=== PATIENT | female | born 1960 | race Caucasian/White ===

== ENCOUNTER 2019-07-27 08:52 | Outpatient (CLI) | payer BC, SELFPAY ==
--- NOTE | ~2019-07-27 | DEXA_ITS ---
Bone Density Report Name: Bonita Espinoza Age: 58 Sex: Female Ethnicity: White Date of : 1960 Indication: postmenopausal; cancer; Referring Provider: LASHAUN DUQUE Study: Bone densitometry was performed. Exam Date: July 27, 2019 Accession number: [id number] Bone Density: Region BMD T-score Z-score Classification AP Spine (L1-L4) 0.867 -1.6 -0.5 Osteopenia Femoral Neck (Left) 0.756 -0.8 0.3 Normal Total Hip (Left) 1.007 0.5 1.3 Normal Total Hip Bilateral Avg 0.973 0.3 1.0 Normal Femoral Neck (Right) 0.615 -2.1 -1.0 Osteopenia Total Hip (Right) 0.938 0.0 0.7 Normal World Health Organization criteria for BMD impression classify patients as: Normal (T-score at or above -1.0), Osteopenia (T-score between -1.0 and -2.5), or Osteoporosis (T-score at or below -2.5). 10-year Fracture Risk(1): Major Osteoporotic Fracture 8.3% Hip Fracture 1.0% Reported Risk Factors: [place] (), Neck BMD=0.615, BMI=28.3 (1) FRAX(R) Version 3.08. Fracture probability calculated for an untreated patient. Fracture probability may be lower if the patient has received treatment. Previous Exams: Region Exam Age BMD T-score BMD Change BMD Change Date g/cm2 vs Baseline vs Previous AP Spine(L1-L4) 07/27/2019 58 0.867 -1.6 -0.071(-7.6%)* -0.071(-7.6%)* 05/02/2017 56 0.939 -1.0 Total Hip(Left) 07/27/2019 58 1.007 0.5 -0.009(-0.9%) -0.009(-0.9%) 05/02/2017 56 1.016 0.6 Total Hip(Right) 07/27/2019 58 0.938 0.0 -0.008(-0.8%) -0.008(-0.8%) 05/02/2017 56 0.946 0.0 *Denotes significance at 95% confidence level, LSC for AP Spine = 0.022 g/cm2, LSC for Total Hip = 0.027 g/cm2 Clinical Information Provided by Patient: Has used the following medications: Vitamin D, Calcium Has the following medical conditions: Cancer Patient maximum height was 63 Menopause Age: 54 Onset of menses at age 17 Number of children 1 Impression: The patient has low bone mass, based on the Right Femoral Neck T-score. The patient has an estimated ten-year risk of hip fracture of 1% and an estimated ten-year risk of major fracture of 8.3%, based on the WHO FRAX algorithm. The BMD for the AP Spine(L1-L4) decreased, changing by -7.6% since the last DXA exam. Discussion: BONE DENSITY IS LOW AT ONE OR MORE SKELETAL SITES. This patient's lowest T-score is low at one or more skeletal sites. It meets the World Health Organization's (WHO) criteria for ?low
== END 2019-07-27 08:53 | disposition home or self-care (01) ==
PROVIDERS: PCP Family Medicine; Visit Provider Obstetrics & Gynecology Gynecology
DX: Z78.0 Asymptomatic menopausal state (principal); M85.851 Other specified disorders of bone density and structure, right thigh; M85.88 Other specified disorders of bone density and structure, other site
CPT/HCPCS: 77080

== ENCOUNTER 2019-11-08 08:41 | Outpatient (CLI) | payer BC, SELFPAY ==
--- NOTE | ~2019-11-08 | MM_ITS ---
EXAMINATION: MM screening [facility] w michael HISTORY: Screening mammogram TECHNIQUE: Craniocaudal and mediolateral oblique 3-D tomosynthesis images were obtained and synthetic 2-D images were generated. CAD analysis was submitted and interpreted. COMPARISON: Comparison to multiple prior studies sequentially, with oldest reviewed study dated 12/20. BREAST PARENCHYMAL COMPOSITION: There are scattered areas of fibroglandular density. FINDINGS: Stable architectural distortion in the right breast, consistent with previous lumpectomy. T here is no evidence of suspicious mass, calcification, or architectural distortion to suggest maligna ncy in either breast. There has been no suspicious interval change. IMPRESSION: 1. No mammographic evidence of malignancy. 2. Recommend routine screening mammography in one year. BI-RADS Category 2: Benign finding(s). Reviewed, dictated and finalized at location A.
== END 2019-11-08 08:42 | disposition home or self-care (01) ==
LOC: ANHIMG 08:44
PROVIDERS: PCP Family Medicine; Visit Provider Internal Medicine Hematology & Oncology
DX: Z12.31 Encounter for screening mammogram for malignant neoplasm of breast (principal)
CPT/HCPCS: 77063; 77067

== ENCOUNTER 2019-11-08 09:06 | Outpatient (CLI) | payer BC, SELFPAY ==
[2019-11-08 09:26] LABS: Basophils Percent Auto 0.5 % (0.2-1.2); Eosinophils Absolute Auto 0.2 K/mm3 (0-0.3); Eosinophils Percent Auto 2.7 % (0-4.4); Hematocrit 43.7 % (37.0-47.0); Hemoglobin 14.8 g/dL (12.0-15.0); Immature Granulocyte Absolute 0.01 K/mm3 (0.00-0.031); Immature Granulocyte Percent A 0.2 % (0-0.5); Lymphocytes Absolute Auto 2.38 K/mm3 (0.9-3.2); Mean Corpuscular HGB Conc 33.9 g/dl (32-36); Mean Corpuscular Hemoglobin 30.6 pg (26-34); Mean Corpuscular Volume 90.5 fl (80-100); Mean Platelet Volume 9.7 fl (7.4-10.4); Monocytes Absolute Auto 0.5 K/mm3 (0.1-0.6); Monocytes Percent Auto 8.2 % (2.6-8.5); Neutrophils Absolute Auto 2.9 K/mm3 (1.3-6.7); Neutrophils Percent Auto 48.4 % (45.5-73.1); Platelet Count Result 208 k/mm3 (150-375); Red Blood Count 4.83 M/mm3 (4.2-5.4); Red Cell Distribution Width 13.2 % (11.5-14.5)
[2019-11-08 12:53] LABS: Alanine Aminotransferase 26 U/L (4-35); Albumin Level 4.3 g/dL (3.5-5.1); Alkaline Phosphatase 94 U/L (38-126); Aspartate Amino Transferase 34 U/L (14-36); Bilirubin,Total 0.4 mg/dL (0.2-1.3); Blood Urea Nitrogen 16 mg/dL (7-17); Calcium 9.2 mg/dL (8.4-10.2); Carbon Dioxide 27 mmol/L (22-30); Chloride 105 mmol/L (98-107); Estimated Glomerular Filt Rate > 60; Glucose 86 mg/dL (65-105); Potassium 4.1 mmol/L (3.4-5.0); Sodium 139 mmol/L (137-145)
[2019-11-10 20:53] LABS: CA 27.29 28 U/mL (<38)
== END 2019-11-08 09:07 | disposition home or self-care (01) ==
LOC: ANHLAB 09:11
PROVIDERS: PCP Family Medicine; Visit Provider Internal Medicine Hematology & Oncology
DX: C50.411 Malignant neoplasm of upper-outer quadrant of right female breast (principal); Z17.0 Estrogen receptor positive status [ER+]
CPT/HCPCS: 36415; 80053; 85025; 86300

== ENCOUNTER 2020-05-29 12:27 | Outpatient (CLI) | payer BC, SELFPAY ==
[2020-05-29 12:47] LABS: Basophils Percent Auto 0.6 % (0.2-1.2); Eosinophils Absolute Auto 0.2 K/mm3 (0-0.3); Eosinophils Percent Auto 2.1 % (0-4.4); Hematocrit 46.4 % (37.0-47.0); Immature Granulocyte Absolute 0.01 K/mm3 (0.00-0.031); Immature Granulocyte Percent A 0.1 % (0-0.5); Lymphocytes Absolute Auto 2.53 K/mm3 (0.9-3.2); Lymphocytes Percent Auto 36.1 % (18.3-44.2); Mean Corpuscular HGB Conc 34.5 g/dl (32-36); Mean Corpuscular Hemoglobin 31.5 pg (26-34); Mean Corpuscular Volume 91.3 fl (80-100); Mean Platelet Volume 9.7 fl (7.4-10.4); Monocytes Absolute Auto 0.5 K/mm3 (0.1-0.6); Monocytes Percent Auto 7.4 % (2.6-8.5); Neutrophils Absolute Auto 3.8 K/mm3 (1.3-6.7); Neutrophils Percent Auto 53.7 % (45.5-73.1); Platelet Count Result 235 k/mm3 (150-375); Red Blood Count 5.08 M/mm3 (4.2-5.4); Red Cell Distribution Width 12.7 % (11.5-14.5)
[2020-05-29 13:00] LABS: Alanine Aminotransferase 34 U/L (4-35); Albumin Level 4.3 g/dL (3.5-5.1); Alkaline Phosphatase 79 U/L (38-126); Anion Gap 6 mmol/L (8-16); Aspartate Amino Transferase 42 U/L (14-36); Bilirubin,Total 0.4 mg/dL (0.2-1.3); Blood Urea Nitrogen 16 mg/dL (7-17); Calcium 9.6 mg/dL (8.4-10.2); Carbon Dioxide 32 mmol/L (22-30); Chloride 102 mmol/L (98-107); Estimated Glomerular Filt Rate > 60; Glucose 84 mg/dL (65-105); Potassium 4.3 mmol/L (3.4-5.0); Sodium 140 mmol/L (137-145)
[2020-06-03 06:02] LABS: CA 27.29 22 U/mL (<38)
== END 2020-05-29 12:28 | disposition home or self-care (01) ==
LOC: ANHLAB 12:29
PROVIDERS: PCP Family Medicine; Visit Provider Internal Medicine Hematology & Oncology
DX: C50.411 Malignant neoplasm of upper-outer quadrant of right female breast (principal); Z17.0 Estrogen receptor positive status [ER+]
CPT/HCPCS: 36415; 80053; 85025; 86300

== ENCOUNTER 2020-11-09 08:27 | Outpatient (CLI) | payer BC, SELFPAY ==
--- NOTE | ~2020-11-09 | MM_ITS ---
EXAMINATION: MM screening [facility] w michael HISTORY: Screening mammogram TECHNIQUE: Craniocaudal and mediolateral oblique 3-D tomosynthesis images were obtained and synthetic 2-D images were generated. CAD analysis was submitted and interpreted. COMPARISON: 11/08/2019, 11/04/2018, 10/31/2017, 10/25/2016 bilateral digital screening mammogram examination s BREAST PARENCHYMAL COMPOSITION: The breasts are heterogeneously dense, which may obscure small masses . FINDINGS: Stable right upper outer quadrant architectural distortion and a focal overlying retraction post right partial mastectomy for breast cancer. There are 2 biopsy markers on the right. There is no evidence of suspicious mass, calcification, or a rchitectural distortion to suggest malignancy in either breast. There has been no suspicious interval change. IMPRESSION: 1. Status post partial right mastectomy for breast cancer. No mammographic evidence of malignancy. 2. Recommend routine screening mammography in one year. BI-RADS Category 2: Benign finding(s). Reviewed, dictated and finalized at location A. IMPRESSION: 1. Status post partial right mastectomy for breast cancer. No mammographic evid ence of malignancy. 2. Recommend routine screening mammography in one year. BI-RADS Category 2: Benign finding(s).
== END 2020-11-09 08:28 | disposition home or self-care (01) ==
LOC: ANHIMG 08:31
PROVIDERS: PCP Family Medicine; Visit Provider Internal Medicine Hematology & Oncology
DX: Z12.31 Encounter for screening mammogram for malignant neoplasm of breast (principal)
CPT/HCPCS: 77063; 77067

== ENCOUNTER 2021-03-17 07:07 | Outpatient (CLI) | payer BC, SELFPAY ==
[2021-03-17 08:02] LABS: Alanine Aminotransferase 28 U/L (4-35); Albumin Level 4.5 g/dL (3.5-5.1); Alkaline Phosphatase 69 U/L (38-126); Anion Gap 7 mmol/L (8-16); Aspartate Amino Transferase 38 U/L (14-36); Bilirubin,Total 0.5 mg/dL (0.2-1.3); Blood Urea Nitrogen 18 mg/dL (7-17); Calcium 9.2 mg/dL (8.4-10.2); Carbon Dioxide 29 mmol/L (22-30); Chloride 105 mmol/L (98-107); Estimated Glomerular Filt Rate > 60; Glucose 96 mg/dL (65-110); Potassium 4.1 mmol/L (3.4-5.0); Sodium 141 mmol/L (137-145)
[2021-03-17 08:15] LABS: Basophils Percent Auto 0.7 % (0.2-1.2); Eosinophils Absolute Auto 0.2 K/mm3 (0-0.3); Hemoglobin 15.2 g/dL (12.0-15.0); Immature Granulocyte Absolute 0.02 K/mm3 (0.00-0.031); Immature Granulocyte Percent A 0.3 % (0-0.5); Lymphocytes Absolute Auto 2.27 K/mm3 (0.9-3.2); Mean Corpuscular HGB Conc 34.5 g/dl (32-36); Mean Corpuscular Hemoglobin 31.9 pg (26-34); Mean Corpuscular Volume 92.4 fl (80-100); Mean Platelet Volume 10.1 fl (7.4-10.4); Monocytes Absolute Auto 0.5 K/mm3 (0.1-0.6); Monocytes Percent Auto 7.7 % (2.6-8.5); Neutrophils Percent Auto 50.3 % (45.5-73.1); Platelet Count Result 217 k/mm3 (150-375); Red Blood Count 4.76 M/mm3 (4.2-5.4); Red Cell Distribution Width 12.5 % (11.5-14.5)
[2021-03-21 05:33] LABS: CA 15-3 14 U/mL (<32)
== END 2021-03-17 07:08 | disposition home or self-care (01) ==
LOC: ANHLAB 07:14
PROVIDERS: PCP Family Medicine; Visit Provider Internal Medicine Hematology & Oncology
DX: Z00.00 Encounter for general adult medical examination without abnormal findings (principal)
CPT/HCPCS: 36415; 80053; 85025; 86300

== ENCOUNTER 2021-12-04 10:44 | Outpatient (CLI) | payer BC, SELFPAY ==
--- NOTE | ~2021-12-04 | MM_ITS ---
EXAMINATION: MM screening [facility] BI w michael HISTORY: Screening TECHNIQUE: Craniocaudal and mediolateral oblique 3-D tomosynthesis images were obtained and synthetic 2-D images were generated. CAD analysis was submitted and interpreted. COMPARISON: Comparison to multiple prior studies sequentially, with oldest reviewed study dated 10/25. BREAST PARENCHYMAL COMPOSITION: The breasts are heterogenously dense, which may obscure small masses. FINDINGS: The left breast is stable without evidence for malignancy. Stable architectural distortion in the right breast, consistent with previous lumpectomy site. There is a developing cluster of calci fications in the right breast, outer aspect, best seen on CC view. IMPRESSION: 1. Developing cluster of indeterminate right breast calcifications on CC view. 2. Magnification views are recommended. BI-RADS Category 0: Incomplete: Needs additional imaging evaluation. Reviewed, dictated and finalized at location A.
== END 2021-12-04 10:45 | disposition home or self-care (01) ==
LOC: ANHIMG 10:45
PROVIDERS: PCP Family Medicine; Visit Provider Internal Medicine Hematology & Oncology
DX: Z12.31 Encounter for screening mammogram for malignant neoplasm of breast (principal); R92.8 Other abnormal and inconclusive findings on diagnostic imaging of breast
CPT/HCPCS: 77063; 77067

== ENCOUNTER 2021-12-06 16:36 | Outpatient (CLI) | payer BC, SELFPAY ==
--- NOTE | ~2021-12-06 | DEXA_ITS ---
Bone Density Report Name: CHANELL WADE Age: 61 Sex: Female Ethnicity: White Date of : 1960 Indication: postmenopausal; screening for osteoporosis; cancer; Referring Provider: LASHAUN DUQUE Study: Bone densitometry was performed. Exam Date: December 06, 2021 Accession number: [id number] Bone Density: Region BMD T-score Z-score Classification AP Spine(L1-L4) 0.923 -1.1 0.2 Osteopenia Femoral Neck (Left) 0.725 -1.1 0.1 Osteopenia Total Hip (Left) 1.004 0.5 1.4 Normal Femoral Neck (Right) 0.642 -1.9 -0.6 Osteopenia Total Hip (Right) 0.939 0.0 0.9 Normal Total Hip Mean 0.972 0.3 1.2 Normal World Health Organization criteria for BMD impression classify patients as: Normal (T-score at or above -1.0), Osteopenia (T-score between -1.0 and -2.5), or Osteoporosis (T-score at or below -2.5). 10-year Fracture Risk(1): Major Osteoporotic Fracture 8.4% Hip Fracture 0.9% Reported Risk Factors: [place] (), Neck BMD=0.642, BMI=30.1 (1) FRAX(R) Version 3.08. Fracture probability calculated for an untreated patient. Fracture probability may be lower if the patient has received treatment. Clinical Information Provided by Patient: Has used the following medications: Fosamax (i.e. alendronate), Vitamin D, Calcium Has the following medical conditions: Cancer Patient maximum height was 63 Menopause Age: 54 Drinks caffeinated beverages Onset of menses at age 17 Number of children 1 Impression: The patient has low bone mass, based on the Right Femoral Neck T-score. The patient has an estimated ten-year risk of hip fracture of 0.9% and an estimated ten-year risk of major fracture of 8.4%, based on the WHO FRAX algorithm. Discussion: BONE DENSITY IS LOW AT ONE OR MORE SKELETAL SITES. This patient's lowest T-score is low at one or more skeletal sites. It meets the World Health Organization's (WHO) criteria for ?low bone mass? (T-score between -1.0 and -2.5). The patient's 10-year risk of fracture as calculated by FRAX is less than the threshold where pharmacological therapy is recommended by the National Osteoporosis Foundation (NOF). However, all treatment decisions require clinical judgment and consideration of individual patient factors, including patient preferences, comorbidities, previous drug use, risk factors not captured in the FRAX model (e.g., frailty, falls, vitamin D deficiency, increased bone turnover, interval significant decline in bone density) and possible under or overestimation of fracture risk by FRAX. The patient should follow a healthful lifestyle (good nutrition with adequate calcium and vitamin D, and appropriate weight-bearing exercise). Follow-Up: Consider repeating this study in 2 to 3 years to reassess this patient's status, or sooner if there is some new
== END 2021-12-06 16:37 | disposition home or self-care (01) ==
PROVIDERS: PCP Family Medicine; Visit Provider Obstetrics & Gynecology Gynecology
DX: Z78.0 Asymptomatic menopausal state (principal); M85.88 Other specified disorders of bone density and structure, other site; M85.852 Other specified disorders of bone density and structure, left thigh; M85.851 Other specified disorders of bone density and structure, right thigh
CPT/HCPCS: 77080

== ENCOUNTER 2021-12-28 11:58 | Outpatient (CLI) | payer BC, SELFPAY ==
--- NOTE | ~2021-12-28 | MM_ITS ---
EXAMINATION: MM diagnostic mammo unilat RT HISTORY: Developing cluster of indeterminate right breast calcifications reported on 12/04/2021 TECHNIQUE: Additional 3-D ML tomosynthesis images of the right breast were performed and synthetic 2- D images were generated. Magnification ML, MLO and CC views. CAD analysis was submitted and interpret ed. COMPARISON: Serial mammograms dating back to12/21/2014 FINDINGS: Subtle grouped microcalcifications are noted in the upper outer quadrant of the right breas t. Fine linear microcalcifications are noted. Stereotactic biopsy is recommended. IMPRESSION: 1. Fine linear subtle grouped microcalcifications in the upper outer quadrant of the right breast 2. Stereotactic biopsy is recommended BI-RADS category 4, suspicious findings. Dr. Gallagher telephoned the report and stereotactic biopsy recommendation on 12/28/[address] Cantrell Reviewed, dictated and finalized at location B. IMPRESSION: 1. Fine linear subtle grouped microcalcifications in the upper outer quadrant o f the right breast 2. Stereotactic biopsy is recommended BI-RADS category 4, suspicious findings. Dr. Gallagher telephoned the report and stereotactic biopsy recommendation on [address] Cantrell
== END 2021-12-28 11:59 | disposition home or self-care (01) ==
LOC: ANHIMG 12:00
PROVIDERS: PCP Family Medicine; Visit Provider Internal Medicine Hematology & Oncology
DX: R92.8 Other abnormal and inconclusive findings on diagnostic imaging of breast (principal)
CPT/HCPCS: 77065

== ENCOUNTER 2022-01-14 12:39 | Outpatient (CLI) | payer BC, SELFPAY ==
--- NOTE | ~2022-01-14 | MM_ITS ---
EXAMINATION: MM stereotactic bx RT, MM post biopsy diagnostic RT, MM stereotactic specimen RT, Specim en Radiograph, Tissue Marker Clip Placement, Unilateral Mammogram DATE: 01/14/2022 15:19 (accession [id number]), 01/14/2022 15:15 (accession [id number]), 01/14 15:14 (accession [id number]) INDICATION: Abnormal mammogram: Upper outer quadrant right breast microcalcifications. TECHNIQUE AND FINDINGS: The risks and potential benefits of the procedure were discussed with the patient and written informe d consent was obtained. Timeout procedure was performed. The patient was placed in the prone position on the dedicated stereotactic table with the right breast in craniocaudal compression, and the area of interest was localized and targeted utilizing digital imaging with stereotaxis. After sterile preparation of the skin, 1% lidocaine was utilized for local anesthesia at the skin pun cture site and 1% lidocaine with epinephrine was utilized for deeper local anesthesia/is about the bi opsy site. A 9G Dotstud[employer] vacuum assisted biopsy needle was advanced to the level of the calcification o f interest from a cephalad approach utilizing stereotactic guidance and a total of 12 tissue core bio psies were obtained. A specimen radiograph demonstrates that the calcifications of interest are included within the tissue cores. A tissue marker clip was then placed at the biopsy site. A digital mammographic exposure co nfirmed the successful deployment of the biopsy marker. The needle was removed and hemostasis was ac hieved. A sterile bandage was applied. The patient tolerated the procedure well and there is no cassy dence of significant immediate complication. The patient was given verbal as well as written postpro cedural instructions prior to discharge from the department. Tissue cores were submitted to surgical pathology for histologic analysis. A 2-view right unilateral digital mammogram was obtained post procedure, demonstrating the tissue mar ker clip in expected position. IMPRESSION: 1. Successful stereotactic biopsy of upper outer quadrant right breast microcalcifications, followe d by tissue marker clip placement. Please refer to pathology report for histologic analysis. Reviewed, dictated and finalized at Location A. Reviewed, dictated and finalized at location A. IMPRESSION: 1. Successful stereotactic biopsy of upper outer quadrant right breast microc alcifications, followed by tissue marker clip placement. Please refer to patho logy report for histologic analysis. IMPRESSION: 1. Successful stereotactic biopsy of upper outer quadrant right breast microc alcifications, followed by tissue marker clip placement. Please refer to patho logy report for histologic analysis.
== END 2022-01-14 12:40 | disposition home or self-care (01) ==
PROVIDERS: PCP Family Medicine; Visit Provider Internal Medicine Hematology & Oncology
DX: R92.1 Mammographic calcification found on diagnostic imaging of breast (principal)
CPT/HCPCS: 19081; 77065; 88305; 88342; A4648

== ENCOUNTER 2022-12-27 14:57 | Outpatient (CLI) | payer BC, SELFPAY ==
[2022-12-27 15:07] LABS: Basophils Percent Auto 0.5 % (0.2-1.2); Eosinophils Absolute Auto 0.1 K/mm3 (0-0.3); Eosinophils Percent Auto 2.3 % (0-4.4); Hematocrit 42.9 % (37.0-47.0); Hemoglobin 14.8 g/dL (12.0-15.0); Immature Granulocyte Absolute 0.01 K/mm3 (0.00-0.031); Immature Granulocyte Percent A 0.2 % (0-0.5); Lymphocytes Absolute Auto 2.48 K/mm3 (0.9-3.2); Lymphocytes Percent Auto 39.9 % (18.3-44.2); Mean Corpuscular HGB Conc 34.5 g/dl (32-36); Mean Corpuscular Hemoglobin 31.2 pg (26-34); Mean Corpuscular Volume 90.3 fl (80-100); Mean Platelet Volume 9.6 fl (7.4-10.4); Monocytes Absolute Auto 0.4 K/mm3 (0.1-0.6); Monocytes Percent Auto 6.1 % (2.6-8.5); Neutrophils Absolute Auto 3.2 K/mm3 (1.3-6.7); Platelet Count Result 214 k/mm3 (150-375); Red Blood Count 4.75 M/mm3 (4.2-5.4); White Blood Count 6.2 K/mm3 (4.5-10.0)
[2022-12-27 15:43] LABS: Alanine Aminotransferase 31 U/L (6-35); Albumin Level 4.3 g/dL (3.5-5.1); Alkaline Phosphatase 62 U/L (38-126); Anion Gap 8 mmol/L (8-16); Aspartate Amino Transferase 38 U/L (14-36); Bilirubin,Total 0.5 mg/dL (0.2-1.3); Blood Urea Nitrogen 20 mg/dL (7-17); Carbon Dioxide 27 mmol/L (22-30); Chloride 103 mmol/L (98-107); Estimated Glomerular Filt Rate > 60; Glucose 111 mg/dL (65-110); Potassium 3.9 mmol/L (3.4-5.0); Sodium 138 mmol/L (137-145)
[2023-01-01 16:30] LABS: CA 15-3 17 U/mL (<32)
== END 2022-12-27 14:58 | disposition home or self-care (01) ==
LOC: ANHLAB 14:59
PROVIDERS: PCP Family Medicine; Visit Provider Internal Medicine Hematology & Oncology
DX: C50.411 Malignant neoplasm of upper-outer quadrant of right female breast (principal); Z17.0 Estrogen receptor positive status [ER+]
CPT/HCPCS: 36415; 80053; 85025; 86300

== ENCOUNTER 2023-08-15 15:29 | Outpatient (CLI) | payer BC, SELFPAY ==
[2023-08-15 15:44] LABS: Basophils Percent Auto 0.5 % (0.2-1.2); Eosinophils Absolute Auto 0.1 K/mm3 (0-0.3); Eosinophils Percent Auto 2.4 % (0-4.4); Hematocrit 43.7 % (37.0-47.0); Immature Granulocyte Absolute 0.02 K/mm3 (0.00-0.031); Immature Granulocyte Percent A 0.3 % (0-0.5); Lymphocytes Percent Auto 39.7 % (18.3-44.2); Mean Corpuscular HGB Conc 34.3 g/dl (32-36); Mean Corpuscular Hemoglobin 31.3 pg (26-34); Monocytes Absolute Auto 0.4 K/mm3 (0.1-0.6); Neutrophils Percent Auto 51.1 % (45.5-73.1); Platelet Count Result 202 k/mm3 (150-375); Red Cell Distribution Width 12.6 % (11.5-14.5); White Blood Count 5.8 K/mm3 (4.5-10.0)
[2023-08-15 16:30] LABS: Alanine Aminotransferase 25 U/L (6-35); Albumin Level 4.3 g/dL (3.5-5.1); Alkaline Phosphatase 65 U/L (38-126); Anion Gap 3 mmol/L (8-16); Aspartate Amino Transferase 33 U/L (14-36); Bilirubin,Total 0.4 mg/dL (0.2-1.3); Blood Urea Nitrogen 17 mg/dL (7-17); Calcium 9.5 mg/dL (8.4-10.2); Carbon Dioxide 30 mmol/L (22-30); Chloride 106 mmol/L (98-107); Estimated Glomerular Filt Rate > 60; Glucose 107 mg/dL (65-110); Potassium 3.6 mmol/L (3.4-5.0); Sodium 139 mmol/L (137-145)
[2023-08-18 18:05] LABS: CA 15-3 14 U/mL (<32)
== END 2023-08-15 15:30 | disposition home or self-care (01) ==
LOC: ANHLAB 15:30
PROVIDERS: PCP Family Medicine; Visit Provider Internal Medicine Hematology & Oncology
DX: C50.411 Malignant neoplasm of upper-outer quadrant of right female breast (principal); Z17.0 Estrogen receptor positive status [ER+]
CPT/HCPCS: 36415; 80053; 85025; 86300

== ENCOUNTER 2024-05-03 08:13 | Outpatient (CLI) | payer OTHER, SELFPAY ==
[2024-05-03 08:44] LABS: Basophils Percent Auto 0.5 % (0.2-1.2); Eosinophils Absolute Auto 0.2 K/mm3 (0-0.3); Eosinophils Percent Auto 3.9 % (0-4.4); Hematocrit 45.1 % (37.0-47.0); Hemoglobin 15.5 g/dL (12.0-15.0); Immature Granulocyte Absolute 0.01 K/mm3 (0.00-0.031); Immature Granulocyte Percent A 0.2 % (0-0.5); Lymphocytes Absolute Auto 1.75 K/mm3 (0.9-3.2); Lymphocytes Percent Auto 30.9 % (18.3-44.2); Mean Corpuscular HGB Conc 34.4 g/dl (32-36); Mean Corpuscular Hemoglobin 30.9 pg (26-34); Mean Platelet Volume 9.7 fl (7.4-10.4); Monocytes Absolute Auto 0.6 K/mm3 (0.1-0.6); Monocytes Percent Auto 9.7 % (2.6-8.5); Neutrophils Absolute Auto 3.1 K/mm3 (1.3-6.7); Neutrophils Percent Auto 54.8 % (45.5-73.1); Platelet Count Result 190 k/mm3 (150-375); Red Blood Count 5.01 M/mm3 (4.2-5.4); Red Cell Distribution Width 12.5 % (11.5-14.5); White Blood Count 5.7 K/mm3 (4.5-10.0)
[2024-05-03 12:09] LABS: Alanine Aminotransferase 32 U/L (6-35); Albumin Level 4.5 g/dL (3.5-5.1); Alkaline Phosphatase 64 U/L (38-126); Anion Gap 6 mmol/L (4-12); Aspartate Amino Transferase 41 U/L (14-36); Blood Urea Nitrogen 19 mg/dL (7-17); Calcium 9.2 mg/dL (8.4-10.2); Carbon Dioxide 27 mmol/L (22-30); Chloride 108 mmol/L (98-107); Estimated Glomerular Filt Rate > 60; Glucose 85 mg/dL (65-110); Sodium 141 mmol/L (137-145)
[2024-05-05 12:09] LABS: CA 15-3 10 U/mL (<32)
== END 2024-05-03 08:14 | disposition home or self-care (01) ==
LOC: ANHLAB 08:21
PROVIDERS: PCP Family Medicine; Visit Provider Internal Medicine Hematology & Oncology
DX: C50.411 Malignant neoplasm of upper-outer quadrant of right female breast (principal); Z17.0 Estrogen receptor positive status [ER+]
CPT/HCPCS: 36415; 80053; 85025; 86300

== ENCOUNTER 2024-11-24 10:23 | Outpatient (CLI) | payer OTHER, SELFPAY ==
--- NOTE | ~2024-11-24 | MM_ITS ---
EXAMINATION: MM screening [facility] w michael HISTORY: Screening mammogram TECHNIQUE: Craniocaudal and mediolateral oblique 3-D tomosynthesis images were obtained and synthetic 2-D images were generated. CAD analysis was submitted and interpreted. COMPARISON: 12/04/2021, 11/09/2020, 11/08/2019 BREAST PARENCHYMAL COMPOSITION:Not Dense. There are scattered areas of fibroglandular density. FINDINGS: No suspicious mass, calcification, or architectural distortion are identified in either lima ast to suggest malignancy. There has been no suspicious interval change. IMPRESSION: No mammographic evidence of malignancy. Recommend routine screening mammography in one year. BI-RADS Category 1: Negative Reviewed, dictated and finalized at location .
== END 2024-11-24 10:24 | disposition home or self-care (01) ==
PROVIDERS: PCP Family Medicine; Referring Provider Internal Medicine Hematology & Oncology; Visit Provider Obstetrics & Gynecology Gynecology
DX: Z12.31 Encounter for screening mammogram for malignant neoplasm of breast (principal)
CPT/HCPCS: 77063; 77067

== ENCOUNTER 2024-12-10 10:26 | Outpatient (CLI) | payer OTHER, SELFPAY ==
--- NOTE | ~2024-12-10 | DEXA_ITS ---
Bone Density Report Name: CHANELL WADE Age: 64 Sex: Female Ethnicity: White Date of : 1960 Indication: postmenopausal; screening for osteoporosis; cancer; Referring Provider: LASHAUN DUQUE Study: Bone densitometry was performed. Exam Date: December 10, 2024 Accession number: [id number] Bone Density: Region BMD T-score Z-score Classification AP Spine(L1-L4) 0.954 -0.8 0.7 Normal Femoral Neck (Left) 0.729 -1.1 0.3 Osteopenia Total Hip (Left) 1.026 0.7 1.7 Normal Femoral Neck (Right) 0.671 -1.6 -0.2 Osteopenia Total Hip (Right) 0.963 0.2 1.2 Normal Total Hip Mean 0.995 0.5 1.5 Normal World Health Organization criteria for BMD impression classify patients as: Normal (T-score at or above -1.0), Osteopenia (T-score between -1.0 and -2.5), or Osteoporosis (T-score at or below -2.5). 10-year Fracture Risk(1): Major Osteoporotic Fracture 8.5% Hip Fracture 0.8% Reported Risk Factors: [place] (), Neck BMD=0.671, BMI=30.3 (1) FRAX(R) Version 3.08. Fracture probability calculated for an untreated patient. Fracture probability may be lower if the patient has received treatment. Clinical Information Provided by Patient: Has used the following medications: Vitamin D, Calcium Has the following medical conditions: Cancer Patient maximum height was 63 Menopause Age: 54 Drinks caffeinated beverages Onset of menses at age 16 Number of children 1 Impression: The patient has low bone mass, based on the Right Femoral Neck T-score. The patient has an estimated ten-year risk of hip fracture of 0.8% and an estimated ten-year risk of major fracture of 8.5%, based on the WHO FRAX algorithm. Discussion: BONE DENSITY IS LOW AT ONE OR MORE SKELETAL SITES. This patient's lowest T-score is low at one or more skeletal sites. It meets the World Health Organization's (WHO) criteria for ?low bone mass? (T-score between -1.0 and -2.5). The patient's 10-year risk of fracture as calculated by FRAX is less than the threshold where pharmacological therapy is recommended by the National Osteoporosis Foundation (NOF). However, all treatment decisions require clinical judgment and consideration of individual patient factors, including patient preferences, comorbidities, previous drug use, risk factors not captured in the FRAX model (e.g., frailty, falls, vitamin D deficiency, increased bone turnover, interval significant decline in bone density) and possible under or overestimation of fracture risk by FRAX. The patient should follow a healthful lifestyle (good nutrition with adequate calcium and vitamin D, and appropriate weight-bearing exercise). Follow-Up: Consider repeating this study in 2 to 3 years to reassess this patient's status, or sooner if there is some new clinical indication. Reported by: CHIKIS on 12/10/2024 11:03:00 AM. Reviewed, dictated and finalized at location A.
--- OUTSIDE RECORDS SUMMARY | 2024-12-10 10:32 | XMS_ITS | Encounter Summary ---
Author Organization [facility] Address [address] [place] [address] Phone Care Team Providers Care Truss Designer Name Role Phone Dev Pedersen DO Primary Care Provider + Valentino Gil MD Unavailable Lauren Villagomez MD Unavailable [phone] Joanne Bui PhD Unavailable [phone] Shravan Cantrell MD Unavailable [phone] Encounter Details Date Type Department Care Team (Latest Contact Info) Description 12/28/2021 Orders Only [facility] Scanning, Provider Social History Tobacco Use Types Packs/Day Years Used Date Smoking Tobacco: Never Smokeless Tobacco: Never Alcohol Use Standard Drinks/Week Comments Yes 0 (1 standard drink = 0.6 oz pur e alcohol) occasionally AUDIT-C Answer Date Recorded Q1: How often do you have a drink containing alc ohol? 2-4 times a month 01/10/2021 Q2: How many drinks containi ng alcohol do you have on a typical day when you are drinking? 1 or 2 01/10/2021 Q3: How often do you have si x or more drinks on one occasion? Never 01/10/2021 PHQ-2 Answer Date Recorded PHQ-2 Total Score (If total score is 3 or more points, staff should administer the PHQ-9) 0 09/13/2021 Comments Unknown Sex and Gender Information Value Date Recorded Sex Assigned at Not on file Legal Sex Female 4:36 PM SYSTEMS TEST TECHNICIAN Gender Identity Female 12/08/2021 8:51 PM CDT Sexual Orientation Straight 12/08/2021 8: 51 PM CDT documented as of this encounter Plan of Treatment Not on file documented as of this encounter Procedures Procedure Name Priority Date/Time Associated Diagnosis Comments SCAN - RADIOLOGY/IMAGING 12/28/2021 documented in this encounter Results * SCAN - RADIOLOGY/IMAGING (12/28/2021) Anatomical Region Laterality Modality Other us Provider Scanning Final Result documented in this encounter Visit Diagnoses Not on filedocumented in this encounter Additional Health Concerns Infection Onset Date Last Indicated Resolved Time C. difficile Comment:06/10/2022 IP Review: per current RN, no diarrhea. OK to be taken off C.dif precautions. Mae Mcneil RN 201706/03/2019 06/02/2019 06/10/2022 7:[address] COVID: Suspected 06/21/2022 06/21/2022 06/21/2022 3:18 PM SYSTEMS TEST TECHNICIAN documented as of this encounter Care Teams Truss Designer Relationship Specialty Start Date End Date Dev Pedersen DO PCP - General 08/30/18 Valentino Gil MD Radiation Oncologist Radiation Oncology 02/02/19 Lauren Villagomez MD Medical Oncologist/Veterinary Physiologist Medical Oncology 02/02/19 10/17/22 Joanne Bui, PhD Nurse Practitioner Radiation Oncology 02/02/19 Shravan Cantrell MD [address] [place] [phone] Medical Oncologist/Veterinary Physiologist Hematology 02/02/19 documented as of this encounter
--- OUTSIDE RECORDS SUMMARY | 2024-12-10 10:33 | XMS_ITS | Encounter Summary ---
Author Organization [facility] Address [address] [place] [address] Care Team Providers Care Accounts Payable Payroll Coordinator Name Role Phone Unknown, Notinfile Primary Care Provider Unavail able Reason for Visit * Diagnostic Imaging (Routine) - Closed Specialty Diagnoses / Procedures Referred By Contac t Referred To Contact Procedures Breast Imaging Screening Outside Reference Diana Arias MD [address] [place] [id number] Phone: tel: fax: Referral ID Status Reason Start Date Expiration Date Visits Re quested Visits Authorized [id number] Closed 04/08/2022 05/08/2023 1 1 Encounter Details Date Type Department Care Team (Late st Contact Info) Description 10/31/2017 Hospital Encounter [facility] [address] [place] [id number] Social History Tobacco Use Types Packs/Day Years Used Date Smoking Tobacco: Never Passive Smoke Exposure: Past Smokeless Tobacco: Never Alcohol Use Standard Drinks/Week Comments Yes 0 (1 standard drink = 0.6 oz pur e alcohol) occasionally AUDIT-C Answer Date Recorded Q1: How often do you have a drink containing alc ohol? 2-4 times a month 06/21/2022 Q2: How many drinks containi ng alcohol do you have on a typical day when you are drinking? 1 or 2 06/21/2022 Q3: How often do you have si x or more drinks on one occasion? Never 06/21/2022 PHQ-2 Answer Date Recorded PHQ-2 Total Score (If total score is 3 or more points, staff should administer the PHQ-9) 0 11/15/2022 Personal Safety Answer Date Recorded Getting School Help Needed Denies 05/19 Comments No Sex and Gender Information Value Date Recorded Sex Assigned at Not on file Legal Sex Female 4:36 PM WIND OPERATIONS MANAGER Gender Identity Female 12/08/2021 8:51 PM CDT Sexual Orientation Straight 12/08/2021 8: 51 PM CDT documented as of this encounter Functional Status * Audit-C Score Answer Date of Assessment Author 2 06/21/2022 11:27 PM Liliane Sim RN * Question Answer Date of Assessment Author Q1: How often do you have a drink containing alcohol? 2-4 times a month 06/21/2022 11:27 PM Claudia Sim RN Q2: How many drinks containing alcohol do you have on a typical day when you are drinking? 1 or 2 06/21/2022 11:27 PM Claudia Sim RN Q3: How often do you have six or more drinks on one occasion? Never 06/21/2022 11:27 PM Claudia Sim RN documented as of this encounter Plan of Treatment Not on file documented as of this encounter Procedures Procedure Name Priority Date/Time Associated Diagnosis Comments BREAST IMAGING MG SCREENING OUTSIDE REFERENCE Routine 10/31/2017 12:00 AM CDT documented in this encounter Results * Breast Imaging Screening Outside Reference (10/31/2017 12:00 AM CDT) Impressions [facility] - 04/08/2022 2:11 PM WIND OPERATIONS MANAGER These images are for Reference purposes only and have not been reviewed by [facility]iology. There will be no report generated by a [facility] Radiologist. Narrative [facility] - 04/08/2022 2:11 PM WIND OPERATIONS MANAGER EXAMINATION: Images For Reference Purposes Only us Diana Arias MD IMG MAMMO PROCEDURES Fi nal Result [facility] documented in this encounter Visit Diagnoses Not on filedocumented in this encounter Additional Health Concerns Infection Onset Date Last Indicated Resolved Time C. difficile Comment:06/10/2022 IP Review: per current RN, no diarrhea. OK to be taken off C.dif precautions. Mae Mcneil RN 201706/03/2019 06/02/2019 06/10/2022 7:[address] COVID: Suspected 06/21/2022 06/21/2022 06/21/2022 3:18 PM WIND OPERATIONS MANAGER documented as of this encounter Care Teams Accounts Payable Payroll Coordinator Relationship Specialty Start Date End Date Unknown, Notinfile PCP - General 01/08/17 07/03/18 documented as of this encounter
--- OUTSIDE RECORDS SUMMARY | 2024-12-10 10:33 | XMS_ITS | Encounter Summary ---
Author Organization [facility] Healthcare Address [address] [place] [address] Care Team Providers Care Sailing Instructor Name Role Phone Dev Pedersen DO Primary Care Provider + Reason for Visit * Diagnostic Imaging (Routine) - Closed Specialty Diagnoses / Procedures Referred By Contac t Referred To Contact Procedures Breast Imaging Screening Outside Reference Diana Arias MD [address] [place] [id number] Phone: tel: fax: Referral ID Status Reason Start Date Expiration Date Visits Re quested Visits Authorized [id number] Closed 04/08/2022 05/08/2023 1 1 Encounter Details Date Type Department Care Team (Late st Contact Info) Description 11/04/2018 Hospital Encounter [facility] [address] [place], [place] [id number] Social History Tobacco Use Types Packs/Day Years [...] on file Legal Sex Female 4:36 PM IT APPLICATION ADMINISTRATOR Gender Identity Female 12/08/2021 8:51 PM CDT Sexual Orientation Straight 12/08/2021 8: 51 PM CDT documented as of this encounter Functional Status * Audit-C Score Answer Date of Assessment Author 2 06/21/2022 11:27 PM IT APPLICATION ADMINISTRATOR Liliane Stokes RN * Question Answer Date of Assessment [...] BREAST IMAGING MG SCREENING OUTSIDE REFERENCE Routine 11/04/2018 12:00 AM CDT documented in this encounter Results * Breast Imaging Screening Outside Reference (11/04/2018 12:00 AM CDT) Impressions [facility] - 04/08/2022 2:10 PM IT APPLICATION ADMINISTRATOR These images are for Reference purposes only and have not been reviewed by [facility] Radiology. There will be no report generated by a [facility] Radiologist. Narrative [facility] - 04/08/2022 2:10 PM IT APPLICATION ADMINISTRATOR EXAMINATION: Images For Reference Purposes Only us [...] COVID: Suspected 06/21/2022 06/21/2022 06/21/2022 3:18 PM IT APPLICATION ADMINISTRATOR documented as of this encounter Care Teams Sailing Instructor Relationship Specialty Start Date End Date Dev Pedersen DO PCP - General 08/30/18 documented as of this encounter
--- OUTSIDE RECORDS SUMMARY | 2024-12-10 10:33 | XMS_ITS | Clinical Summary ---
Author Organization [facility] Address [address] [place] [address] Care Team Providers Care Counter Hop Name Role Phone Dev Pedersen DO Primary Care Provider + Source Comments [facility],non-owned Affiliates and Associated Physician Practices is amultiple site organization consisting of ambulatory clinics and hospital sitesin [place], [place], [place] and [place]. This disclosure is being madepursuant to the Care Everywhere program and may not contain all information available regarding this patient. Last updated 18.[facility] [employer] Social History Tobacco Use Types Packs/Day Years Used Date Smoking Tobacco: Never Assessed Comments Unknown Sex and Gender Information Value Date Recorded Sex Assigned at Not on file Legal Sex Female 6:25 AM BOX TOE CUTTER Gender Identity Not on file Sexual Orientation Not on file Plan of Treatment Health Maintenance Due Date Last Done Comments COLOGUARD (AGES 45-75) - COL ON CA SCREENING 1962 COLON MONITORING 1962 COLONOSCOPY - COLON CA SCREENING 1962 CT COLONOGRAPHY - COLON CA SCREENING 1962 Colorectal Cancer Screening 1962 FIT - COLON CA SCREENING 1962 FLEX SIG - COLON CA SCREENING 1962 LIPID TESTING 1962 MAMMOGRAM 1962 HIV SCREENING 1977 HEPATITIS C SCREENING 11/12/1980 DTAP/TDAP/TD VACCINES (1 - Tdap) 1981 PAP SMEAR 11/18/1983 PNEUMOCOCCAL VACCINE 50+ (1 of 1 - PCV) 2012 ZOSTER VACCINE (1 of 2) 2012 COVID-19 VACCINE (1 - 2023-2 5 season) 2024 DEPRESSION SCREENING 06/02/2024 INFLUENZA VACCINE (#1) 2025 Respiratory Syncytial Virus (RSV) Vaccine Pt: or over 60 yrs (1 - 1-dose 75+ series) 2037 HEPATITIS B VACCINE Aged Out No longe r eligible based on patient's age to complete this topic HIB VACCINE Aged Out No longer eligi ble based on patient's age to complete this topic HPV VACCINE Aged Out No longer eligi ble based on patient's age to complete this topic MENINGOCOCCAL (Group B) VACC INE SHARED DECISION-MAKING Aged Out No longer eligibl e based on patient's age to complete this topic MENINGOCOCCAL GROUPS A/C/Y/W VACCINE Aged Out No longer eligible b ased on patient's age to complete this topic Insurance [facility] Care Teams Counter Hop Relationship Specialty Start Date End Date Dev Pedersen DO [address] [place] [id number] PCP - General 01/17/22
--- OUTSIDE RECORDS SUMMARY | 2024-12-10 10:33 | XMS_ITS | Encounter Summary ---
Author Organization [facility] Address [address] [place] [address] Phone Care Team Providers Care Shipping Clerk Name Role Phone Unknown, Notinfile Primary Care Provider Unavail able No, Physician Primary Care Provider [phone] Dev Pedersen DO Primary Care Provider + Valentino Gil MD Unavailable Lauren Villagomez MD Unavailable [phone] Joanne Bui PhD Unavailable Shravan Cantrell MD Unavailable [phone] Encounter Details Date Type Department Care Team (Latest Contact Info) Description 10/31/2017 Orders Only [facility] Scanning, Provider Social History Tobacco Use Types Packs/Day Years Used Date Smoking Tobacco: Never Assessed Comments Unknown Sex and Gender Information Value Date Recorded Sex Assigned at Not on file Legal Sex Female 4:36 PM TARPER Gender Identity Female 12/08/2021 8:51 PM CDT Sexual Orientation Straight 12/08/2021 8: 51 PM CDT documented as of this encounter Plan of Treatment Not on file documented as of this encounter Procedures Procedure Name Priority Date/Time Associated Diagnosis Comments SCAN - RADIOLOGY/IMAGING 10/31/2017 documented in this encounter Results * SCAN - RADIOLOGY/IMAGING (10/31/2017) Anatomical Region Laterality Modality Other us Provider [...] COVID: Suspected 06/21/2022 06/21/2022 06/21/2022 3:18 PM TARPER documented as of this encounter Care Teams Shipping Clerk Relationship Specialty Start Date End Date Unknown, Notinfile PCP - General 01/08/17 07/03/18 No, Physician PCP - General 07/04/18 08/29/18 Dev Pedersen DO PCP - General 08/30/18 Valentino Gil MD Radiation Oncologist Radiation Oncology 02/02/19 Lauren Villagomez MD Medical Oncologist/Paper Making Machine Operator Medical Oncology 02/02/19 10/17/22 Joanne Bui, PhD Nurse Practitioner Radiation Oncology 02/02/19 Shravan Cantrell MD [address] [address] Medical Oncologist/Paper Making Machine Operator Hematology 02/02/19 documented as of this encounter
--- OUTSIDE RECORDS SUMMARY | 2024-12-10 10:33 | XMS_ITS | Encounter Summary ---
Author Organization [facility] Facility Care Team Providers Care Motor Room Controller Name Role Phone Unknown, Notinfile Primary Care Provider Unavail able No, Physician Primary Care Provider [phone] Dev Pedersen DO Primary Care Provider + Valentino Gil MD Unavailable Lauren Villagomez MD Unavailable [phone] Joanne Bui PhD Unavailable [phone] Shravan Cantrell MD Unavailable [phone] Encounter Details Date Type Department Care Team (Latest Contact Info) Description 04/27/2018 Orders Only [facility] ProviderWagner MD [address] [place] [id number] Social History Tobacco Use Types Packs/Day Years Used Date Smoking Tobacco: Never Assessed Comments Unknown Sex and Gender Information Value Date Recorded Sex Assigned at Not on file Legal Sex Female 4:36 PM WORK COUNSELOR Gender Identity Female 12/08/2021 8:51 PM CDT Sexual Orientation Straight 12/08/2021 8: 51 PM CDT documented as of this encounter Plan of Treatment Not on file documented as of this encounter Procedures Procedure Name Priority Date/Time Associated Diagnosis Comments SCAN - LABS 04/28/2018 12:00 AM WORK COUNSELOR SCAN - LABS 04/28/2018 12:00 AM WORK COUNSELOR SCAN - LABS 04/27/2018 12:00 AM WORK COUNSELOR documented in this encounter Results * SCAN - LABS (04/28/2018 12:00 AM WORK COUNSELOR) Narrative 04/28/2018 12:00 AM WORK COUNSELOR Ordered by an unspecified provider. Historical Provider Final Res ult * SCAN - LABS (04/28/2018 12:00 AM WORK COUNSELOR) Narrative 04/28/2018 12:00 AM WORK COUNSELOR Ordered by an unspecified provider. Historical Provider Final Res ult * SCAN - LABS (04/27/2018 12:00 AM WORK COUNSELOR) Narrative 04/27/2018 12:00 AM WORK COUNSELOR Ordered by an unspecified provider. [facility] Provider Final Res ult documented in this encounter Visit Diagnoses Not on filedocumented in this encounter Additional Health Concerns Infection Onset Date Last Indicated Resolved Time C. difficile Comment:06/10/2022 IP Review: per current RN, no diarrhea. OK to be taken off C.dif precautions. Mae Mcneil RN 201706/03/2019 06/02/2019 06/10/2022 7:[address] COVID: Suspected 06/21/2022 06/21/2022 06/21/2022 3:18 PM WORK COUNSELOR documented as of this encounter Care Teams Motor Room Controller Relationship Specialty Start Date End Date Unknown, Notinfile PCP - General 01/08/17 07/03/18 No, Physician PCP - General 07/04/18 08/29/18 Dev Pedersen DO PCP - General 08/30/18 Valentino Gil MD Radiation Oncologist Radiation Oncology 02/02/19 Lauren Villagomez MD Medical Oncologist/Mechanic Driver Medical Oncology 02/02/19 10/17/22 Joanne Bui, PhD Nurse Practitioner Radiation Oncology 02/02/19 Shravan Cantrell MD [address] [address] Medical Oncologist/Mechanic Driver Hematology 02/02/19 documented as of this encounter
--- OUTSIDE RECORDS SUMMARY | 2024-12-10 10:33 | XMS_ITS | Encounter Summary ---
Author Organization [facility] Facility Care Team Providers Care Boiler Tube Blower Name Role Phone Unknown, Notinfile Primary Care Provider Unavail able No, Physician Primary Care Provider [phone] Dev Pedersen DO Primary Care Provider + Valentino Gil MD Unavailable Lauren Villagomez MD Unavailable [phone] Joanne Bui PhD Unavailable [phone] Shravan Cantrell MD Unavailable [phone] Encounter Details Date Type Department Care Team (Latest Contact Info) Description 06/30/2018 Orders Only [facility] ProviderWagner MD [address] [place] [id number] Social History Tobacco Use Types Packs/Day Years Used Date Smoking Tobacco: Never Assessed Comments Unknown Sex and Gender Information Value Date Recorded Sex Assigned at Not on file Legal Sex Female 4:36 PM DRUPAL PHP DEVELOPER Gender Identity Female 12/08/2021 8:51 PM CDT Sexual Orientation Straight 12/08/2021 8: 51 PM CDT documented as of this encounter Plan of Treatment Not on file documented as of this encounter Procedures Procedure Name Priority Date/Time Associated Diagnosis Comments SCAN - LABS 07/01/2018 12:00 AM DRUPAL PHP DEVELOPER SCAN - LABS 07/01/2018 12:00 AM DRUPAL PHP DEVELOPER SCAN - LABS 07/01/2018 12:00 AM DRUPAL PHP DEVELOPER SCAN - LABS 07/01/2018 12:00 AM DRUPAL PHP DEVELOPER documented in this encounter Results * SCAN - LABS (07/01/2018 12:00 AM DRUPAL PHP DEVELOPER) Narrative 07/01/2018 12:00 AM DRUPAL PHP DEVELOPER Ordered by an unspecified provider. Historical Provider Final Res ult * SCAN - LABS (07/01/2018 12:00 AM DRUPAL PHP DEVELOPER) Narrative 07/01/2018 12:00 AM DRUPAL PHP DEVELOPER Ordered by an unspecified provider. Historical Provider Final Res ult * SCAN - LABS (07/01/2018 12:00 AM DRUPAL PHP DEVELOPER) Narrative 07/01/2018 12:00 AM DRUPAL PHP DEVELOPER Ordered by an unspecified provider. [facility] Provider Final Res ult * SCAN - LABS (07/01/2018 12:00 AM DRUPAL PHP DEVELOPER) Narrative 07/01/2018 12:00 AM DRUPAL PHP DEVELOPER Ordered by an unspecified provider. Historical Provider Final Res ult documented in this encounter Visit Diagnoses Not on filedocumented in this encounter Additional Health Concerns Infection Onset Date Last Indicated Resolved Time C. difficile Comment:06/10/2022 IP Review: per current RN, no diarrhea. OK to be taken off C.dif precautions. Mae Mcneil RN 201706/03/2019 06/02/2019 06/10/2022 7:[address] COVID: Suspected 06/21/2022 06/21/2022 06/21/2022 3:18 PM DRUPAL PHP DEVELOPER documented as of this encounter Care Teams Boiler Tube Blower Relationship Specialty Start Date End Date Unknown, Notinfile PCP - General 01/08/17 07/03/18 No, Physician PCP - General 07/04/18 08/29/18 Dev Pedersen DO PCP - General 08/30/18 Valentino Gil MD Radiation Oncologist Radiation Oncology 02/02/19 Lauren Villagomez MD Medical Oncologist/Labor Relations Analyst Medical Oncology 02/02/19 10/17/22 Joanne Bui, PhD Nurse Practitioner Radiation Oncology 02/02/19 Shravan Cantrell MD [address] [address] Medical Oncologist/Labor Relations Analyst Hematology 02/02/19 documented as of this encounter
--- OUTSIDE RECORDS SUMMARY | 2024-12-10 10:33 | XMS_ITS | Encounter Summary ---
Author Organization [facility] Address [address] [place] [address] Phone Care Team Providers Care Affiliate Marketing Coordinator Name Role Phone Dev Pedersen DO Primary Care Provider + Valentino Gil MD Unavailable Lauren Villagomez MD Unavailable [phone] Joanne Bui PhD Unavailable [phone] Shravan Cantrell MD Unavailable [phone] Encounter Details Date Type Department Care Team (Latest Contact Info) Description 12/04/2021 Orders Only [facility] Scanning, Provider [...] on file Legal Sex Female 4:36 PM RICE MILLING SUPERVISOR Gender Identity Female 12/08/2021 8:51 PM CDT Sexual Orientation Straight 12/08/2021 8: 51 PM CDT documented as of this encounter Plan of Treatment Not on file documented as of this encounter Procedures Procedure Name Priority Date/Time Associated Diagnosis Comments SCAN - RADIOLOGY/IMAGING 12/04/2021 documented in this encounter Results * SCAN - RADIOLOGY/IMAGING (12/04/2021) Anatomical Region Laterality Modality Other us Provider [...] COVID: Suspected 06/21/2022 06/21/2022 06/21/2022 3:18 PM RICE MILLING SUPERVISOR documented as of this encounter Care Teams Affiliate Marketing Coordinator Relationship Specialty Start Date End Date Dev Pedersen DO PCP - General 08/30/18 Valentino Gil MD Radiation Oncologist Radiation Oncology 02/02/19 Lauren Villagomez MD Medical Oncologist/Inspector Crystal Medical Oncology 02/02/19 10/17/22 Joanne Bui, PhD Nurse Practitioner Radiation Oncology 02/02/19 Shravan Cantrell MD [address] [place] [id number] Medical Oncologist/Inspector Crystal Hematology 02/02/19 documented as of this encounter
--- OUTSIDE RECORDS SUMMARY | 2024-12-10 10:33 | XMS_ITS | Encounter Summary ---
Author Organization [facility] Address [address] [place] [address] Phone Care Team Providers Care Slot Editor Name Role Phone Unknown, Notinfile Primary Care Provider Unavail able No, Physician Primary Care Provider [phone] Dev Pedersen DO Primary Care Provider + Valentino Gil MD Unavailable Lauren Villagomez MD Unavailable [phone] Joanne Bui PhD Unavailable [phone] Shravan Cantrell MD Unavailable [phone] Encounter Details Date Type Department Care Team (Latest Contact Info) Description 10/25/2016 Orders Only [facility] Scanning, Provider Social History Tobacco Use Types Packs/Day Years Used Date Smoking Tobacco: Never Assessed Comments Unknown Sex and Gender Information Value Date Recorded Sex Assigned at Not on file Legal Sex Female 4:36 PM CLIENT EXPERIENCE ADMINISTRATOR Gender Identity Female 12/08/2021 8:51 PM CDT Sexual Orientation Straight 12/08/2021 8: 51 PM CDT documented as of this encounter Plan of Treatment Not on file documented as of this encounter Procedures Procedure Name Priority Date/Time Associated Diagnosis Comments SCAN - RADIOLOGY/IMAGING 10/25/2016 documented in this encounter Results * SCAN - RADIOLOGY/IMAGING (10/25/2016) Anatomical Region Laterality Modality Other us Provider [...] COVID: Suspected 06/21/2022 06/21/2022 06/21/2022 3:18 PM CLIENT EXPERIENCE ADMINISTRATOR documented as of this encounter Care Teams Slot Editor Relationship Specialty Start Date End Date Unknown, Notinfile PCP - General 01/08/17 07/03/18 No, Physician PCP - General 07/04/18 08/29/18 Dev Pedersen DO PCP - General 08/30/18 Valentino Gil MD Radiation Oncologist Radiation Oncology 02/02/19 Lauren Villagomez MD Medical Oncologist/Handicrafts Teacher Medical Oncology 02/02/19 10/17/22 Joanne Bui, PhD Nurse Practitioner Radiation Oncology 02/02/19 Shravan Cantrell MD [address] [address] Medical Oncologist/Handicrafts Teacher Hematology 02/02/19 documented as of this encounter
--- OUTSIDE RECORDS SUMMARY | 2024-12-10 10:33 | XMS_ITS | Encounter Summary ---
Author Organization [facility] Address [address] [place] [address] Phone Care Team Providers Care Junior Project Manager Name Role Phone Unknown, Notinfile Primary Care Provider Unavail able No, Physician Primary Care Provider [phone] Dev Pedersen DO Primary Care Provider + Valentino Gil MD Unavailable Lauren Villagomez MD Unavailable [phone] Joanne Bui PhD Unavailable [phone] Shravan Cantrell MD Unavailable Encounter Details Date Type Department Care Team (Latest Contact Info) Description 01/21/2017 Orders Only [facility] Scanning, Provider Social History Tobacco Use Types Packs/Day Years Used Date Smoking Tobacco: Never Assessed Comments Unknown Sex and Gender Information Value Date Recorded Sex Assigned at Not on file Legal Sex Female 4:36 PM DRIER TENDER NAPHTHALENE Gender Identity Female 12/08/2021 8:51 PM CDT Sexual Orientation Straight 12/08/2021 8: 51 PM CDT documented as of this encounter Plan of Treatment Not on file documented as of this encounter Procedures Procedure Name Priority Date/Time Associated Diagnosis Comments SCAN - RADIOLOGY/IMAGING 01/21/2017 documented in this encounter Results * SCAN - RADIOLOGY/IMAGING (01/21/2017) Anatomical Region Laterality Modality Other us Provider [...] COVID: Suspected 06/21/2022 06/21/2022 06/21/2022 3:18 PM DRIER TENDER NAPHTHALENE documented as of this encounter Care Teams Junior Project Manager Relationship Specialty Start Date End Date Unknown, Notinfile PCP - General 01/08/17 07/03/18 No, Physician PCP - General 07/04/18 08/29/18 Dev Pedersen DO PCP - General 08/30/18 Valentino Gil MD Radiation Oncologist Radiation Oncology 02/02/19 Lauren Villagomez MD Medical Oncologist/Cook Apprentice Medical Oncology 02/02/19 10/17/22 Joanne Bui, PhD Nurse Practitioner Radiation Oncology 02/02/19 Shravan Cantrell MD [address] [address] Medical Oncologist/Cook Apprentice Hematology 02/02/19 documented as of this encounter
--- OUTSIDE RECORDS SUMMARY | 2024-12-10 10:33 | XMS_ITS | Clinical Summary ---
Author Organization [facility] Address [address] [place] [address] Care Team Providers Care Wind Up Worker Name Role Phone Dev Pedersen DO Primary Care Provider + Valentino Gil MD Unavailable Joanne Bui PhD Unavailable [phone] Shravan Cantrell MD Unavailable [phone] Allergies No known active allergies Medications ergocalciferol (VITAMIN D) 50,000 unit capsule Take 1 capsule (50,000 Units total) by mouth 3 times per month 3 Sundays in a row and skips a Friday 3 01/28/2019 Active alendronate (FOSAMAX) 70 mg tablet Take 1 tablet (70 mg total) by mouth every 7 days Sundays07/02/2020 Active Yuvafem 10 mcg tablet Insert 1 tablet (10 mcg total) into the vagina 2 (two) times a week Fri/Friday (it changes sometimes) 12/15/2020 Active calcium carbonate (CALCIUM 600 ORAL) Take 1 tablet by mouth nightly Active sertraline (ZOLOFT) 25 mg tablet TAKE 1 TABLET BY MOUTH EVERY DAY 90 tablet 1 02/07/2023 Active meloxicam (MOBIC) 7.5 mg tablet TAKE 1 TABLET BY MOUTH EVERY DAY 90 tablet 06/18/2023 Active Active Problems Problem Noted Date Diagnosed Date Chest wall mass 10/18/2022 Fever, unspecified fever cause 06/21/2022 Postoperative wound infection 06/21/2022 Malignant neoplasm of right female breast 2021 Overview (04/29/2022): Added automatically from request for surgery [id number] History of Clostridioides difficile colitis 03/03 History of colonic polyps 03/26/2022 Ductal carcinoma in situ (DCIS) of right breast 03/26/2022 Decreased range of motion 03/26/2022 History of breast cancer 03/26/2022 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 If the x-ray is reviewed no acute abnormality. She needs a MRI of her left knee. She may need a referral to Ortho. Await the results of the MRI and then make further decisions Assessment & Plan (09/13/2021 1:35 PM CDT): Start meloxicam 7.5 mg daily and can wear knee brace for support. Check knee x- ray. 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, estrogen receptor positive 02/02/2019 Cancer Staging:Clinical stage from 10/19/2013:Stage IA(cT1, cN0, cM0, G2, ER+, KY+, HER2-) - Signed by Joanne Bui, PhD on 02/02/2019 Pathologic stage from 11/12/2013:Stage 0(pTis (DCIS), pN0(sn), cM0, ER: Not Assessed, KY: Not Assessed, HER2: Not Assessed) - Signed by Joanne Bui, PhD on 02/02/2019 Assessment & Plan (02/28/2022 7:38 AM CDT): Will see her surgeon On mar 26 New diagnosis Annual physical exam 12/28/2018 Assessment & Plan (02/28/2022 7:38 AM CDT): Chart reviewed Assessment & Plan (07/12/2020 12:11 PM GORE MAKER): Refill meds Assessment & Plan (12/28/2018 3:46 PM CDT): PPD Encounter for follow-up surveillance of breast c ancer 06/19/2017 Vitamin D deficiency 06/19/2017 Resolved Problems Problem Noted Date Diagnosed Date Resolved Date Encounter for physical exami nation related to employment 11/15/2020 02/28/2022 Assessment & Plan (11/15/2020 10:58 AM CDT): Cleared for work PPD Shingles 08/04/2019 02/28/2022 Assessment & Plan (08/04/2019 2:18 PM GORE MAKER): Refill norco Finish valtrex Start gabapentin 300 at hs Cellulitis 06/24/2019 02/28/2022 Assessment & Plan (06/24/2019 9:22 AM GORE MAKER): Resolved abx finished S/P laparoscopic cholecystectomy 07/09/2018 02/28/2022 Depression 07/08/2017 02/28/2022 Assessment & Plan (01/10/2021 7:56 AM CDT): Patient is doing well with sertraline 25 mg daily continue. Order a CBC Chem 7 lipid profile liver function test TSH in 6 months Assessment & Plan (06/24/2019 9:23 AM GORE MAKER): Patient is well controlled. Continue current treatment. Immunizations Immunization Administration Dates Next Due Hep A, Adult 08/03/2001 Influenza, Quadrivalent, Spl it, Intramuscular 05/14/2018,05/30/2016,05/23/2015,03/21,04/01/2013 Influenza, Quadrivalent, Spl it, Preservative Free, Intramuscular 04/22/2022,06/06/2019 Influenza, Unspecified 03/02/2021,03/01/2020 PPD TEST 11/15/2020,12/28/2018,06/17/2017 Tdap 09/13/2021 ZOSTER Recombinant 10/12/2021,06/04/2021 Surgical History Surgery Date Site/Laterality Comments US UNLISTED PROCEDURE LYMPH SYSTEM 11/12/2013 N/A SECTION 06/02/2002 - 06/01/2003 GALLBLADDER SURGERY 06/02/2016 - 06/01/2017 Lap mary BREAST LUMPECTOMY 06/02/2013 - 06/01/2014 Right BREAST BIOPSY Right 2013 and 2021 MASTECTOMY 06/02/2022 - 07/02/2022 Right Medical History Medical History Date Comments Vitamin D deficiency Cellulitis Shingles 2019 h/o Depression Breast cancer (HCC) right breast Family History Medical History Relation Name Comments Autoimmune disease Brother 1 Prostate cancer Brother 1 Prostate cancer Brother 2 No Known Problems Daughter Liver cancer Father Lung cancer Maternal Grandmother Breast cancer Mother Breast cancer Paternal Grandmother Basal cell carcinoma Sister 1 Breast cancer Sister 1 Basal cell carcinoma Sister 2 Autoimmune disease Sister 3 Relation Name Status Comments Brother 1 Alive Brother 2 Alive Daughter Alive Father Maternal Grandmother Mother Paternal Grandmother Sister 1 Alive Sister 2 Alive Sister 3 Alive Social History Tobacco Use Types Packs/Day Years Used Date Smoking Tobacco: Never Passive Smoke Exposure: Past Smokeless Tobacco: Never Tobacco Cessation:Counseling Given: Not Answered Alcohol Use Standard Drinks/Week Comments Yes 0 [...] on file Legal Sex Female 4:36 PM GORE MAKER Gender Identity Female 12/08/2021 8:51 PM CDT Sexual Orientation Straight 12/08/2021 8: 51 PM CDT Obstetrics History Last Filed Vital Signs Vital Sign Reading Time Taken Comments Blood Pressure 92/60 11/15/2022 8:10 AM CDT Pulse 67 11/15/2022 8:10 AM CDT Temperature 36.4 C (97.5 F) 11/15/2022 8:10 AM CDT Respiratory Rate 18 06/27/2022 12:32 PM GORE MAKER Oxygen Saturation 98% 11/15/2022 8:10 AM CDT Inhaled Oxygen Concentration - - Weight 72.3 kg (159 lb 6.4 oz) 11/15/2022 8:10 A M CDT Height 160 cm (5' 3) 11/15/2022 8:10 AM CDT Body Mass Index 28.24 11/15/2022 8:10 AM CDT Plan of Treatment Health Maintenance Due Date Last Done Comments Cervical Cancer Screening 1962 Hepatitis B Screening 1980 Breast Cancer Screening-Mammogram 11/07/2020 11/08/2019, 11/04/2018, 10/31/2017, Additional history exists Colon Cancer Screening-Colonoscopy 02/12/2023 02/12/2013 Regular Well Visit/Exam 18-64 02/28/2023 02/28/2022, 07/12/2020, 07/12/2020, Additional history exists Depression Screening 11/16/2023 11/15/2022, 02/28/2022, 09/13/2021, Additional history exists Covid-19 Vaccine ( season) 2024 06/21/2021, 08/10/2020, 07/19/2020 Influenza Vaccine (#1) 2025 , 04/22/2022, 03/02/2021, Additional history exists DTaP/Tdap/Td Vaccine (2 - Td or Tdap) 09/14/2031 09/13/2021 Colon Cancer Screening-CT Colonography Discontinued 02/12/2013 Colon Cancer Screening-DNA Stool Discontinued 02/12/2013 Colon Cancer Screening-FIT Discontinued 02/12/2013 Colon Cancer Screening-Sigmoidoscopy Discontinued 02/12/2013 Hepatitis C Screening Completed 06/10/2019, 019 Zoster Vaccine Completed 10/12/2021, 06/04/2021 Pneumococcal vaccine <65 Aged Out No longer eligible based on patient's age to complete this topic Procedures Procedure Name Priority Date/Time Associated Diagnosis Comments HEPATITIS PANEL, ACUTE Routine 06/10/2019 3:54 AM GORE MAKER DIAGNOSTIC MAMMOGRAM BILATERAL W MIGUEL Routine 12/21/2015 9:28 AM CDT COLONOSCOPY Routine 02/12/2013 from Last 3 Months or Most Recently Relevant to Health Maintenance Results * Hepatitis panel, acute (06/10/2019 3:54 AM GORE MAKER) HepBsAg NONREACT NONREACTIVE [facility] Comment: Siemens CentaurXP using TAMMY (chemiluminescent immunoassay) technology. NONREACTIVE: IgM antibodies to Hepatitis B Surface antigen not detected. REACTIVE: IgM antibodies to Hepatitis B Surface antigen detected. Reactive results will be confirmed by neutralization testing. HBsAb qn 32.63 mIU/mL [facility] Comment: Siemens CentaurXP using TAMMY (chemiluminescent immunoassay) technology. 9.99 IU/L or less.....NONREACTIVE: IgM antibodies to Hepatitis B Surface antibody are not detected. 10.00 IU/L or greater..REACTIVE: IgM antibodies to Hepatitis B Surface antibody are detected. Hep B core IgM NONREACT NONREACTIVE [facility] Comment: Siemens CentaurXP using TAMMY (chemiluminescent immunoassay) technology. NONREACTIVE: IgM antibodies to Hepatitis B Core antigen not detected. EQUIVOCAL: IgM antibodies to Hepatitis B Core antigen may or may not be present. Obtain a new specimen and retest. REACTIVE: IgM antibodies to Hepatitis B Core antigen detected. Hep A IgM NONREACT NONREACTIVE [facility] Comment: Siemens CentaurXP using TAMMY (chemiluminescent immunoassay) technology. NONREACTIVE: IgM antibodies to Hepatitis A not detected. This does not exclude possibility of exposure to Hepatitis A or early acute infection. EQUIVOCAL:IgM antibodies to Hepatitis A may or may not be present. Suggest recollection and retest. REACTIVE: Antibodies to Hepatitis A detected. Hep C Ab NONREACT NONREACTIVE [facility] Comment: Siemens CentaurXP using TAMMY (chemiluminescent immunoassay) technology. NONREACTIVE: Antibodies to Hepatitis C not detected. This does not exclude early acute Hepatitis C infection, possibility of exposure to Hepatitis C, antibodies below detection limit, or to lack of antibody reactivity to the antigen used in this assay. EQUIVOCAL: Antibodies to Hepatitis C may or may not be present. Sample to be confirmed by real-time PCR method. REACTIVE: Antibodies to Hepatitis C detected.Sample to be confirmed by real-time PCR method. 06/10/2019 3:54 AM GORE MAKER 06/10/2019 4:43 AM GORE MAKER Narrative Resulting Agency Comment MOE us Ace Monique MD LAB MICROBIOLOGY - GENERAL OR DERABLES Final Result Performing Organization Address City/State/[facility] [place] [address], [facility] [phone] * Diagnostic Mammogram Bilateral W Miguel (12/21/2015 9:28 AM CDT) Anatomical Region Laterality Modality Breast Bilateral Mammography 12/21/2015 9:28 AM CDT Narrative 12/21/2015 11:16 AM CDT ELKIN CAMPA M.D. FLAQUITO CHAMPION M.D. FINAL REPORT The radiology attending physician has personally reviewed this study, and has reviewed and/or edited this written report and agrees with it. ACC# Date Time Exam [id number] Dec 21, 2015 09:28:00 [facility] [id number] Diag Mammogram Bilateral Technologist(s): Tamela Ly; ; [id number] Dec 21, 2015 09:28:00 [facility] [address] Dig Breast Miguel Kenneth Technologist(s): Tamela Ly; ; EXAMINATION: BILATERAL FULL FIELD DIGITAL DIAGNOSTIC MAMMOGRAM WITH CAD AND BILATERAL DIGITAL BREAST TOMOSYNTHESIS HISTORY: Personal history of RIGHT breast cancer with prior breast conservation therapy. TECHNIQUE: Full field digital craniocaudal and mediolateral oblique views of both breasts were obtained. Computer Aided Detection was performed with Bizware.3 version 9.3. Bilateral digital breast tomosynthesis was performed and reviewed as a part of this examination. COMPARISON: 12/21/2014, 10/14/2013, 12/15/2012 BREAST PARENCHYMAL COMPOSITION: The breasts are heterogeneously dense, which may obscure small masses. FINDINGS: Findings compatible with prior RIGHT breast conservation therapy are noted. No new suspicious abnormality is identified within either breast. IMPRESSION: OVERALL FINAL ASSESSMENT: BI-RADS Category 2: Benign finding. RECOMMENDATION: Bilateral diagnostic mammogram is recommended in one year. Requested By: Dictated By: FLAQUITO CHAMPION M.D. on Dec 21 2015 9:42A This document has been electronically signed by: ELKIN CAMPA M.D. on Dec 21 2015 11:16A [id number] Procedure Note Provider, MD Wagner - 10/06/2016 ELKIN CAMPA M.D. FLAQUITO CHAMPION M.D. FINAL REPORT The radiology attending physician has personally reviewed this study, and has reviewed and/or edited this written report and agrees with it. ACC# Date Time Exam [id number] Dec 21, 2015 09:28:00 [facility] [id number] Diag Mammogram Bilateral Technologist(s): Tamela Ly; ; [id number] Dec 21, 2015 09:28:00 [facility] 28770 Dig Breast Miguel Kenneth Technologist(s): Tamela Ly; ; EXAMINATION: BILATERAL FULL FIELD DIGITAL DIAGNOSTIC MAMMOGRAM WITH CAD AND BILATERAL DIGITAL BREAST TOMOSYNTHESIS HISTORY: Personal history of RIGHT breast cancer with prior breast conservation therapy. TECHNIQUE: Full field digital craniocaudal and mediolateral oblique views of both breasts were obtained. Computer Aided Detection was performed with Numbrs AG 1.3 version 9.3. Bilateral digital breast tomosynthesis was performed and reviewed as a part of this examination. COMPARISON: 12/21/2014, 10/14/2013, 12/15/2012 BREAST PARENCHYMAL COMPOSITION: The breasts are heterogeneously dense, which may obscure small masses. FINDINGS: Findings compatible with prior RIGHT breast conservation therapy are noted. No new suspicious abnormality is identified within either breast. IMPRESSION: OVERALL FINAL ASSESSMENT: BI-RADS Category 2: Benign finding. RECOMMENDATION: Bilateral diagnostic mammogram is recommended in one year. Requested By: Dictated By: FLAQUITO CHAMPION M.D. on Dec 21 2015 9:42A This document has been electronically signed by: ELKIN CAMPA M.D. on Dec 21 2015 11:16A [id number] us Historical Provider IMG MAMMO PROCEDURES Mame l Result * Colonoscopy (02/12/2013) Anatomical Region Laterality Modality Other us Historical Provider ENDOSCOPY PROCEDURES Mame l Result from Last 3 Months or Most Recently Relevant to Health Maintenance Insurance [employer] [place] [employer] [place] Advance Directives For more information, please contact: [phone] * Full Code (Latest Code Status on File) Date Activated Date Inactivated Comments 06/21/2022 11:09 PM 06/27/2022 7:12 PM Care Teams Wind Up Worker Relationship Specialty Start Date End Date Dev Pedersen DO PCP - General 08/30/18 Valentino Gil MD Radiation Oncologist Radiation Oncology 02/02/19 Joanne Bui, PhD Nurse Practitioner Radiation Oncology 02/02/19 Shravan Cantrell MD [address] [place] [id number] Medical Oncologist/Preschool Assistant Teacher Hematology 02/02/19
--- OUTSIDE RECORDS SUMMARY | 2024-12-10 10:33 | XMS_ITS | Encounter Summary ---
Author Organization [facility] Address [address] [place] [address] Phone Care Team Providers Care German Tutor Name Role Phone Dev Pedersen DO Primary Care Provider + Valentino Gil MD Unavailable Lauren Villagomez MD Unavailable [phone] Joanne Bui PhD Unavailable [phone] Shravan Cantrell MD Unavailable [phone] Encounter Details Date Type Department Care Team (Latest Contact Info) Description 11/09/2020 Orders Only [facility] Scanning, Provider Social History Tobacco Use Types Packs/Day Years Used Date Smoking Tobacco: Never Smokeless Tobacco: Never Alcohol Use Standard Drinks/Week Comments Yes 0 (1 standard drink = 0.6 oz pur e alcohol) occasionally PHQ-2 Answer Date Recorded PHQ-2 Total Score (If total score is 3 or more points, staff should administer the PHQ-9) 0 07/12/2020 Comments Unknown Sex and Gender Information Value Date Recorded Sex Assigned at Not on file Legal Sex Female 4:36 PM METAL SMELTER Gender Identity Female 12/08/2021 8:51 PM CDT Sexual Orientation Straight 12/08/2021 8: 51 PM CDT documented as of this encounter Plan of Treatment Not on file documented as of this encounter Procedures Procedure Name Priority Date/Time Associated Diagnosis Comments SCAN - RADIOLOGY/IMAGING 11/09/2020 documented in this encounter Results * SCAN - RADIOLOGY/IMAGING (11/09/2020) Anatomical Region Laterality Modality Other us Provider [...] COVID: Suspected 06/21/2022 06/21/2022 06/21/2022 3:18 PM METAL SMELTER documented as of this encounter Care Teams German Tutor Relationship Specialty Start Date End Date Dev Pedersen DO PCP - General 08/30/18 Valentino Gil MD Radiation Oncologist Radiation Oncology 02/02/19 Lauren Villagomez MD Medical Oncologist/Piano Player Medical Oncology 02/02/19 10/17/22 Joanne Bui, PhD Nurse Practitioner Radiation Oncology 02/02/19 Shravan Cantrell MD [address] [place] [id number] Medical Oncologist/Piano Player Hematology 02/02/19 documented as of this encounter
--- OUTSIDE RECORDS SUMMARY | 2024-12-10 10:33 | XMS_ITS | Clinical Summary ---
Author Organization [facility] Address [address] [place] [address] Care Team Providers Care Senior Data Developer Name Role Phone ChavezDev Primary Care Provider [phone] Allergies No known active allergies Medications cholecalciferol 50,000 unit Capsule Take 50,000 Units by mouth every 7 days 3x/mo . Active multivitamin (DAILY-STEFANO) tablet Take 1 Tablet by mouth daily. Active sertraline (ZOLOFT) 25 mg tablet Take 25 mg by mouth daily. Active IMVEXXY STARTER PACK 10 mcg insert, dose pack 02/11/2019 Active ergocalciferol (VITAMIN D2) 50,000 unit capsule 05/14/2019 Active alendronate (FOSAMAX) 70 mg tablet TAKE 1 TABLET BY MOUTH EVERY WEEK 04/30/2020 Active aspirin (ECOTRIN EC) 81 mg Tablet, Delayed Release (E.C.) Take 81 mg by mouth daily. Active Active Problems Problem Noted Date Diagnosed Date Encounter for screening mamm ogram for malignant neoplasm of breast 10/25/2016 Malignant neoplasm of upper- outer quadrant of right female breast 10/22/2016 Family History Medical History Relation Name Comments Cancer Brother 1 Other Brother 2 Cancer Father Breast Cancer Mother Healthy Sister 1 Breast Cancer Sister 2 Other Sister 3 Relation Name Status Comments Brother 1 Alive Brother 2 Alive Father Mother Sister 1 Alive Sister 2 Alive Sister 3 Alive Social History Tobacco Use Types Packs/Day Years Used Date Smoking Tobacco: Never Tobacco Cessation:Counseling Given: Not Answered Comments No Sex and Gender Information Value Date Recorded Sex Assigned at Female 06/04/2024 9:19 PM FINISHER SCREWDOWN Legal Sex Female 5:16 PM FINISHER SCREWDOWN Gender Identity Female 06/04/2024 9:19 PM FINISHER SCREWDOWN Sexual Orientation Straight 06/04/2024 9: 19 PM FINISHER SCREWDOWN Last Filed Vital Signs Vital Sign Reading Time Taken Comments Blood Pressure 122/73 05/07/2024 12:38 PM FINISHER SCREWDOWN Pulse 89 05/07/2024 12:38 PM FINISHER SCREWDOWN Temperature 36.5 C (97.7 F) 05/07/2024 12:38 PM FINISHER SCREWDOWN Respiratory Rate 14 05/07/2024 12:38 PM FINISHER SCREWDOWN Oxygen Saturation 92% 05/07/2024 12:38 PM FINISHER SCREWDOWN Inhaled Oxygen Concentration - - Weight 71.7 kg (158 lb) 05/07/2024 12:38 PM FINISHER SCREWDOWN Height 160 cm (5' 3) 02/08/2022 2:46 PM CDT Body Mass Index 27.99 02/08/2022 2:46 PM CDT Plan of Treatment Upcoming Encounters Date Type Department Care Team (Late st Contact Info) Description 12/29/2024 2:00 PM CDT Office Visit [facility] Oncology and Hematology [facility] [address] [facility] [address] [place] [address] Shravan Cantrell MD [address] [facility] [address] [place] [address] Health Maintenance Due Date Last Done Comments Pre-Diabetes and Diabetes Screening 1962 HPV/Cotest (21-29) 11/18/1983 HPV/Cotest (30-65) 1992 FIT-DNA Q 3 years 11/18/2007 FIT/FOBT Q 1 year 11/18/2007 Flex Sig/CT Colonography Q 5 years 11/18/2007 CERVICAL CANCER SCREENING 02/10/2022 PAP SMEAR 02/10/2022 02/10/2019, 0909/2017, 01/29/2017 COLORECTAL SCREENING 02/12/2023 02/12/2013, 02/12/2013, 02/12/2013 Colorectal Cancer Screening 02/12/2023 BREAST CANCER SCREENING 11/24/2024 11/25/19 24, 11/18/2023, 10/18/2022, Additional history exists INFLUENZA VACCINE (#1) 2024 2, 06/06/2019, 05/14/2018, Additional history exists DTAP/TDAP/TD VACCINES (2 - T d or Tdap) 09/14/2031 09/13/2021 RSV VACCINE (60+ or ) (1 - 1-dose 75+ series) 2037 ZOSTER VACCINE Completed 10/12/2021, 06/04/2021 Procedures Procedure Name Priority Date/Time Associated Diagnosis Comments MAMMO DIAGNOSTIC UNI LEFT W OR WO CAD Routine 11/18/2023 3:39 PM CDT ENDOSCOPY, COLON, SCREENING Routine 02/12/2013 from Last 3 Months or Most Recently Relevant to Health Maintenance Results * MAMMO DIAGNOSTIC UNI LEFT W OR WO CAD (11/18/2023 3:39 PM CDT) Anatomical Region Laterality Modality Breast Left Mammography Shravan Cantrell MD MAMMO ORDERABLES Final Result * ENDOSCOPY, COLON, SCREENING (02/12/2013) us Abstract Provider GI PROCEDURE ORDERABLES Final Result from Last 3 Months or Most Recently Relevant to Health Maintenance Insurance [facility] C20 Care Teams Senior Data Developer Relationship Specialty Start Date End Date Dev Chavez DO PCP - General Family Practice 01/12/19
--- OUTSIDE RECORDS SUMMARY | 2024-12-10 10:33 | XMS_ITS | Clinical Summary ---
Author Organization [facility] Care Team Providers Care Salt Operator Name Role Phone Unavailable Primary Care Provider Unavailabl e Social History Tobacco Use Types Packs/Day Years Used Date Smoking Tobacco: Never Assessed Comments Unknown Sex and Gender Information Value Date Recorded Sex Assigned at Not on file Legal Sex Female 1:15 PM JUVENILE PROBATION OFFICER Gender Identity Not on file Sexual Orientation Not on file Plan of Treatment Health Maintenance Due Date Last Done Comments Hepatitis C Virus (HCV) Screening 1960 TdaP Immunization 1960 Pap Smear 11/18/1983 Cervical Cancer Screening (CCS) 1992 HPV/Cotest 1992 Colonoscopy 11/18/2007 Colorectal Cancer Screening 11/18/2007 Cologuard 2012 Immunochemical Fecal Occult Blood 2012 Mammogram 2012 Pneumococcal Immunization (5 0+ years) (1 of 1 - PCV) 2012 Zoster Immunization (1 of 2) 2012 Influenza Immunization (#1) 2024 06/06/2019 SARS-COV-2 Immunization ( - 2023-25 season) 2024 Respiratory Syncytial Virus (RSV) Immunization (Adult) (1 - 1-dose 75+ series) 2037 Hepatitis B Immunization Aged Out No longer eligible based on patient's age to complete this topic Meningococcal Immunization (ACWY) Aged Out No longer eligible based on patient's age to complete this topic Pneumococcal Immunization Combined Aged Out No longer eligible based on patient's age to complete this topic Rotavirus Immunization Aged Out No lo nger eligible based on patient's age to complete this topic
--- OUTSIDE RECORDS SUMMARY | 2024-12-10 10:33 | XMS_ITS | Encounter Summary ---
Author Organization [facility] Care Team Providers Care Burglar Alarm Inspector Name Role Phone Unknown, Notinfile Primary Care Provider Unavail able No, Physician Primary Care Provider [phone] Dev Pedersen DO Primary Care Provider + Valentino Gil MD Unavailable Lauren Villagomez MD Unavailable [phone] Joanne Bui PhD Unavailable [phone] Shravan Cantrell MD Unavailable [phone] Encounter Details Date Type Department Care Team (Latest Contact Info) Description 07/01/2018 Orders Only [facility] CLINCON[facility] ProviderWagner MD [address] [place] [address] Social History Tobacco Use Types Packs/Day Years Used Date Smoking Tobacco: Never Assessed Comments Unknown Sex and Gender Information Value Date Recorded Sex Assigned at Not on file Legal Sex Female 4:36 PM CITIZEN PARTICIPATION SPECIALIST Gender Identity Female 12/08/2021 8:51 PM CDT Sexual Orientation Straight 12/08/2021 8: 51 PM CDT documented as of this encounter Plan of Treatment Not on file documented as of this encounter Procedures Procedure Name Priority Date/Time Associated Diagnosis Comments SCAN - LABS 07/01/2018 12:00 AM CITIZEN PARTICIPATION SPECIALIST documented in this encounter Results * SCAN - LABS (07/01/2018 12:00 AM CITIZEN PARTICIPATION SPECIALIST) Narrative 07/01/2018 12:00 AM CITIZEN PARTICIPATION SPECIALIST Ordered by an unspecified provider. us Historical Provider Final Res ult documented in this encounter Visit Diagnoses Not on filedocumented in this encounter Additional Health Concerns Infection Onset Date Last Indicated Resolved Time C. difficile Comment:06/10/2022 IP Review: per current RN, no diarrhea. OK to be taken off C.dif precautions. Mae Mcneil RN 201706/03/2019 06/02/2019 06/10/2022 7:[address] COVID: Suspected 06/21/2022 06/21/2022 06/21/2022 3:18 PM CITIZEN PARTICIPATION SPECIALIST documented as of this encounter Care Teams Burglar Alarm Inspector Relationship Specialty Start Date End Date Unknown, Notinfile PCP - General 01/08/17 07/03/18 No, Physician PCP - General 07/04/18 08/29/18 Dev Pedersen DO PCP - General 08/30/18 Valentino Gil MD Radiation Oncologist Radiation Oncology 02/02/19 Lauren Villagomez MD Medical Oncologist/Cable Television Access Coordinator Medical Oncology 02/02/19 10/17/22 Joanne Bui, PhD Nurse Practitioner Radiation Oncology 02/02/19 Shravan Cantrell MD [address] [address] Medical Oncologist/Cable Television Access Coordinator Hematology 02/02/19 documented as of this encounter
--- OUTSIDE RECORDS SUMMARY | 2024-12-10 10:33 | XMS_ITS | Encounter Summary ---
Author Organization [facility] Address [address] [place] [address] Care Team Providers Care Vice President Of Procurement Name Role Phone Dev Pedersen DO Primary Care Provider + Encounter Details Date Type Department Care Team (Late st Contact Info) Description 07/02/2023 Lab Requisition [facility] - DermPath Lab [address] [place] [id number] Jm Merchant MD [address] [facility] [place] [place] [address] Social History Tobacco Use Types Packs/Day Years Used Date Smoking Tobacco: Never Assessed Comments Unknown Sex and Gender Information Value Date Recorded Sex Assigned at Not on file Legal Sex Female 6:25 AM MODELING INSTRUCTOR Gender Identity Not on file Sexual Orientation Not on file documented as of this encounter Plan of Treatment Not on file documented as of this encounter Procedures Procedure Name Priority Date/Time Associated Diagnosis Comments DERMATOPATHOLOGY Routine 07/01/2023 3:33 AM MODELING INSTRUCTOR documented in this encounter Results * DERMATOPATHOLOGY (07/01/2023 3:33 AM MODELING INSTRUCTOR) Case Report Dermatopathology Report Case: [id number] Authorizing Provider: Jm Merchant MD Collected: 07/01/2023 03:33 AM Ordering Location: [facility] DermPath Lab Received: 07/02/2023 10:36 AM Pathologist: Roseann Gonzalez MD Specimens: A) - Skin, left sup chest B) - Skin, left lateral thigh 4 7:57 AM [facility] DERMATOPATHOLOGY LABORATORY Final Diagnosis Specimen A. SKIN, left sup chest: SOLAR LENTIGO WITH FEATURES OF AN END-STAGE LICHENOID TISSUE REACTION (L81.4) Specimen B. SKIN, left lateral thigh: DERMAL FIBROSIS AND ANGIOPROLIFERATIVE CHANGE (L90.5) FOCAL CHANGES OF LICHEN PLANUS-LIKE KERATOSIS (BENIGN LICHENOID KERATOSIS) (L82.1) (see microscopic description and comment) 4 7:57 AM [facility] DERMATOPATHOLOGY LABORATORY at [address] [facility] Clinical History A: MM vs. ISK. Path# [id number] B: BCCA vs. ISK. Path# [id number] 4 7:57 AM [facility] DERMATOPATHOLOGY LABORATORY Gross Description Specimen A: Received is one formalin filled container labeled with the patient's name and designated left sup chest. The specimen consists of a shave biopsy measuring 6x5x1 mm. Jar 0. Specimen B: Received is one formalin filled container labeled with the patient's name and designated left lateral thigh. The specimen consists of a shave biopsy measuring 7x6x2 mm. Jar 0. 4 7:57 AM [facility] DERMATOPATHOLOGY LABORATORY Microscopic Description Specimen A. SKIN, left sup chest: There is orthokeratosis. There is a slight increase in epidermal thickness with lentiginous buds of hyperpigmented keratinocytes. The number of melanocytes is only mildly increased. In the dermis, there is basophilic degeneration of elastic fibers, colloid bodies and melanin within melanophages around the superficial vascular plexus. Specimen B. SKIN, left lateral thigh: Tissue sections display a dome-shaped lesion in which there is an epidermal collarette surrounding a dermal proliferation of haphazard spindle cells and small vessels. Eccrine ducts are focally entrapped and squamatized. The adjacent epidermis is slightly acanthotic and contains a brisk associated papillary dermal lymphocytic infiltrate. Necrotic keratinocytes are also seen. The hematoxylin and eosin stain is reviewed; immunohistochemical stains are performed to further characterize this process. The spindle cells are negative for p63, MelanA, S100, and ALK. CD163 highlights scattered interstitial histiocytes and Factor XIIIa highlights scattered dendritic cells but each fail to make a majority of the spindled cells. ERG and CD34 highlight intrinsic vessels but are also negative within the spindle cell component. COMMENT: The findings in this specimen are not entirely specific but may represent a hypertrophic scar adjacent to a lichenoid keratosis. However, these findings are no entirely well-developed and given the relatively superficial nature of the biopsy specimen, a deeper dermal process cannot be excluded. If this lesion persists or recurs, or if there remains concern for a neoplastic process, repeat deeper sampling or conservative re-excision could be considered. This case has been reviewed by Dr. Nesha Gonzalez who concurs with the diagnosis. 4 7:57 AM [facility] DERMATOPATHOLOGY LABORATORY Disclaimer An external and internal positive and negative controls are appropriate for the histochemical, immunohistochemical and immunofluorescence stain(s) in this case (if any), except where stated explicitly. The performance characteristics of the stain(s) cited in this report were developed and its performance characteristic determined by the Dermatopathology Laboratory at [facility], directed by Dr. Robert Siegel. These tests need not be, and therefore are not, approved by the [place] Food and Drug Administration. The tests are used for clinical purposes. Billing Codes Specimen Charges Stain Charges 64652 96352 1 1 00822 61841 13015 89409 76122 55339 55635 69794 1 1 1 1 1 1 1 1 4 7:57 AM MODELING INSTRUCTOR DERMATOPATHOLOGY LABORATORY Embedded Images 4 7:57 AM [facility] DERMATOPATHOLOGY LABORATORY Pathology/Cytology TISSUE SPECIMEN FROM SKIN / Unknown 07/01/2023 3:33 AM MODELING INSTRUCTOR 07/02/2023 10:36 AM MODELING INSTRUCTOR Miscellaneous samples (specimen) TISSUE SPECIMEN FROM SKIN / Unknown 07/01/2023 3:33 AM MODELING INSTRUCTOR 07/02/2023 10:36 AM MODELING INSTRUCTOR us Jm Merchant MD LAB - PATHOLOGY/CYTOLOGY ORDER DELBERT Final Result DERMATOPATHOLOGY LABORATORY [facility] - Department of Dermatology [address], [address] [phone] documented in this encounter Visit Diagnoses Not on filedocumented in this encounter Care Teams Vice President Of Procurement Relationship Specialty Start Date End Date Dev Pedersen DO [address] [address] [facility] [address] [place] [phone] PCP - General 01/17/22 documented as of this encounter
--- OUTSIDE RECORDS SUMMARY | 2024-12-10 10:33 | XMS_ITS | Encounter Summary ---
Author Organization [facility] Address [address] [place] [address] Care Team Providers Care Street Light Lamp Cleaner Name Role Phone Dev Pedersen DO Primary Care Provider + Valentino Gil MD Unavailable Lauren Villagomez MD Unavailable [phone] Joanne Bui PhD Unavailable [phone] Shravan Cantrell MD Unavailable [phone] Reason for Visit * Diagnostic Imaging (Routine) - Closed Specialty Diagnoses / Procedures Referred By Onesimo black Referred To Contact Procedures Breast Imaging Screening Outside Reference Diana Arias MD [address] [address] Phone: tel: fax: Referral ID Status Reason Start Date Expiration Date Visits Re quested Visits Authorized [id number] Closed 04/08/2022 05/08/2023 1 1 Encounter Details Date Type Department Care Team (Late st Contact Info) Description 11/08/2019 Hospital Encounter [facility] [address] [place] [id number] Social History Tobacco Use Types Packs/Day [...] on file Legal Sex Female 4:36 PM LEASING REPRESENTATIVE Gender Identity Female 12/08/2021 8:51 PM CDT [...] BREAST IMAGING MG SCREENING OUTSIDE REFERENCE Routine 11/08/2019 12:00 AM CDT documented in this encounter Results * Breast Imaging Screening Outside Reference (11/08/2019 12:00 AM CDT) Impressions RAD_MAMMO_[facility] - 04/08/2022 2:11 PM LEASING REPRESENTATIVE These images are for Reference purposes only and have not been reviewed by [facility] Radiology. There will be no report generated by a [facility] Radiologist. Narrative RAD_MAMMO_[facility] - 04/08/2022 2:11 PM LEASING REPRESENTATIVE EXAMINATION: Images For Reference Purposes Only us [...] COVID: Suspected 06/21/2022 06/21/2022 06/21/2022 3:18 PM LEASING REPRESENTATIVE documented as of this encounter Care Teams Street Light Lamp Cleaner Relationship Specialty Start Date End Date Dev Pedersen DO PCP - General 08/30/18 Valentino Gil MD Radiation Oncologist Radiation Oncology 02/02/19 Lauren Villagomez MD Medical Oncologist/Contracts Attorney Medical Oncology 02/02/19 10/17/22 Joanne Bui, PhD Nurse Practitioner Radiation Oncology 02/02/19 Shravan Cantrell MD [address] [phone] Medical Oncologist/Contracts Attorney Hematology 02/02/19 documented as of this encounter
--- OUTSIDE RECORDS SUMMARY | 2024-12-10 10:33 | XMS_ITS | Encounter Summary ---
Author Organization [facility] Address [address] [place] [address] Phone Care Team Providers Care Press Operator Helper Name Role Phone Dev Pedersen DO Primary Care Provider + Valentino Gil MD Unavailable Lauren Villagomez MD Unavailable [phone] Joanne Bui PhD Unavailable [phone] Shravan Cantrell MD Unavailable [phone] Encounter Details Date Type Department Care Team (Latest Contact Info) Description 12/06/2021 Orders Only [facility] Scanning, Provider [...] on file Legal Sex Female 4:36 PM ROLL PLUGGER MACHINE OPERATOR Gender Identity Female 12/08/2021 8:51 PM CDT Sexual Orientation Straight 12/08/2021 8: 51 PM CDT documented as of this encounter Plan of Treatment Not on file documented as of this encounter Procedures Procedure Name Priority Date/Time Associated Diagnosis Comments SCAN - RADIOLOGY/IMAGING 12/06/2021 documented in this encounter Results * SCAN - RADIOLOGY/IMAGING (12/06/2021) Anatomical Region Laterality Modality Other us Provider [...] COVID: Suspected 06/21/2022 06/21/2022 06/21/2022 3:18 PM ROLL PLUGGER MACHINE OPERATOR documented as of this encounter Care Teams Press Operator Helper Relationship Specialty Start Date End Date Dev Pedersen DO PCP - General 08/30/18 Valentino Gil MD Radiation Oncologist Radiation Oncology 02/02/19 Lauren Villagomez MD Medical Oncologist/Pharmacy Technician Program Director Medical Oncology 02/02/19 10/17/22 Joanne Bui, PhD Nurse Practitioner Radiation Oncology 02/02/19 Shravan Cantrell MD [address] [place] [phone] Medical Oncologist/Pharmacy Technician Program Director Hematology 02/02/19 documented as of this encounter
--- OUTSIDE RECORDS SUMMARY | 2024-12-10 10:33 | XMS_ITS | Referral Summary ---
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, estrogen receptor positive 02/02/2019 Cancer Staging:Clinical stage from 10/19/2013:Stage IA(cT1, cN0, cM0, G2, ER+, OK+, HER2-) - Signed by Joanne Bui, PhD on 02/02/2019 Pathologic stage from 11/12/2013:Stage 0(pTis (DCIS), pN0(sn), cM0, ER: Not Assessed, OK: Not Assessed, HER2: Not Assessed) - Signed by Joanne Bui, PhD on 02/02/2019 Assessment & Plan (02/28/2022 7:38 AM CDT): Will see her surgeon On mar 26 New diagnosis Annual physical exam 12/28/2018 Assessment & Plan (02/28/2022 7:38 AM CDT): Chart reviewed Assessment & Plan (07/12/2020 12:11 PM DOUGH MACHINE OPERATOR): Refill meds Assessment & Plan (12/28/2018 3:46 PM CDT): PPD Encounter for follow-up surveillance of breast c ancer 06/19/2017 Vitamin D deficiency 06/19/2017 Resolved Problems Problem Noted Date Diagnosed Date Resolved Date Encounter for physical exami nation related to employment 11/15/2020 02/28/2022 Assessment & Plan (11/15/2020 10:58 AM CDT): Cleared for work PPD Shingles 08/04/2019 02/28/2022 Assessment & Plan (08/04/2019 2:18 PM DOUGH MACHINE OPERATOR): Refill norco Finish valtrex Start gabapentin 300 at hs Cellulitis 06/24/2019 02/28/2022 Assessment & Plan (06/24/2019 9:22 AM DOUGH MACHINE OPERATOR): Resolved abx finished S/P laparoscopic cholecystectomy 07/09/2018 02/28/2022 Depression 07/08/2017 02/28/2022 Assessment & Plan (01/10/2021 7:56 AM CDT): Patient is doing well with sertraline 25 mg daily continue. Order a CBC Chem 7 lipid profile liver function test TSH in 6 months Assessment & Plan (06/24/2019 9:23 AM DOUGH MACHINE OPERATOR): Patient is well controlled. Continue current treatment. Immunizations Immunization Administration Dates Next Due Hep A, Adult 08/03/2001 Influenza, Quadrivalent, Spl it, Intramuscular 05/14/2018,05/30/2016,05/23/2015,03/21,04/01/2013 Influenza, Quadrivalent, Spl it, Preservative Free, Intramuscular 04/22/2022,06/06/2019 Influenza, Unspecified 03/02/2021,03/01/2020 PPD TEST 11/15/2020,12/28/2018,06/17/2017 Tdap 09/13/2021 ZOSTER Recombinant 10/12/2021,06/04/2021 Social History Tobacco Use Types Packs/Day Years [...] on file Legal Sex Female 4:36 PM DOUGH MACHINE OPERATOR Gender Identity Female 12/08/2021 8:51 PM CDT Sexual Orientation Straight 12/08/2021 8: 51 PM CDT Last Filed Vital Signs Vital Sign Reading Time Taken Comments Blood Pressure 92/60 11/15/2022 8:10 AM CDT Pulse 67 11/15/2022 8:10 AM CDT Temperature 36.4 C (97.5 F) 11/15/2022 8:10 AM CDT Respiratory Rate 18 06/27/2022 12:32 PM DOUGH MACHINE OPERATOR Oxygen Saturation 98% 11/15/2022 8:10 AM CDT Inhaled Oxygen Concentration - - Weight 72.3 kg (159 lb 6.4 oz) 11/15/2022 8:10 A M CDT Height 160 cm (5' 3) 11/15/2022 8:10 AM CDT Body Mass Index 28.24 11/15/2022 8:10 AM CDT Plan of Treatment Not on file Procedures Procedure Name Priority Date/Time Associated Diagnosis Comments HEPATITIS PANEL, ACUTE Routine 06/10/2019 3:54 AM DOUGH MACHINE OPERATOR DIAGNOSTIC MAMMOGRAM BILATERAL W MIGUEL Routine 12/21/2015 9:28 AM CDT COLONOSCOPY Routine 02/12/2013 from Last 3 Months or Most Recently Relevant to Health Maintenance Results * Hepatitis panel, acute (06/10/2019 3:54 AM DOUGH MACHINE OPERATOR) HepBsAg NONREACT NONREACTIVE [facility] Comment: Siemens CentaurXP using TAMMY (chemiluminescent immunoassay) technology. NONREACTIVE: IgM antibodies to Hepatitis B Surface antigen not detected. REACTIVE: IgM antibodies to Hepatitis B Surface antigen detected. Reactive results will be confirmed by neutralization testing. HBsAb qn 32.63 mIU/mL [facility] Comment: Siemens CentaurXP using TAMMY (chemiluminescent immunoassay) technology. 9.99 IU/L or less.....NONREACTIVE: IgM antibodies to Hepatitis B Surface antibody are not detected. 10.00 IU/L or greater..REACTIVE: IgM antibodies to Hepatitis B Surface antibody are detected. Hep B core IgM NONREACT NONREACTIVE [facility] Comment: Siemens CentaurXP using TAMMY (chemiluminescent immunoassay) technology. NONREACTIVE: IgM antibodies to Hepatitis B Core antigen not detected. EQUIVOCAL: IgM antibodies to Hepatitis B Core antigen may or may not be present. Obtain a new specimen and retest. REACTIVE: IgM antibodies to Hepatitis B Core antigen detected. Hep A IgM NONREACT NONREACTIVE [facility] Comment: Siemens CentaurXP using TAMMY (chemiluminescent immunoassay) technology. NONREACTIVE: IgM antibodies to Hepatitis A not detected. This does not exclude possibility of exposure to Hepatitis A or early acute infection. EQUIVOCAL:IgM antibodies to Hepatitis A may or may not be present. Suggest recollection and retest. REACTIVE: Antibodies to Hepatitis A detected. Hep C Ab NONREACT NONREACTIVE [facility] Comment: Siemens CentaurXP using TAMMY (chemiluminescent immunoassay) [...] by real-time PCR method. 06/10/2019 3:54 AM DOUGH MACHINE OPERATOR 06/10/2019 4:43 AM DOUGH MACHINE OPERATOR Narrative Resulting Agency Comment MOE us Ace Monique MD LAB MICROBIOLOGY - GENERAL OR DERABLES Final Result [address] [address], [facility] [phone] * Diagnostic Mammogram Bilateral W Miguel (12/21/2015 9:28 AM CDT) Anatomical Region Laterality Modality Breast Bilateral Mammography 12/21/2015 9:28 AM CDT Narrative 12/21/2015 11:16 AM CDT Valentin STEVENS M.D. FINAL REPORT The radiology attending physician has personally reviewed this study, and has reviewed and/or edited this written report and agrees with it. ACC# Date Time Exam [id number] Dec 21, 2015 09:28:00 [facility] [id number] Diag Mammogram Bilateral Technologist(s): Tamela Ly; ; [id number] Dec 21, 2015 09:28:00 [facility] [id number] Dig Breast Miguel Kenneth Technologist(s): Tamela Ly; ; EXAMINATION: BILATERAL FULL FIELD DIGITAL DIAGNOSTIC MAMMOGRAM WITH CAD AND BILATERAL DIGITAL BREAST TOMOSYNTHESIS HISTORY: Personal history of RIGHT breast cancer with prior breast conservation therapy. TECHNIQUE: Full field digital craniocaudal and mediolateral oblique views of both breasts were obtained. Computer Aided Detection was performed with Vimbly.3 version 9.3. Bilateral digital breast tomosynthesis was [...] CAMPA M.D. on Dec 21 2015 11:16A [id number] Procedure Note Provider, Wagner, - 10/06/2016 ELKIN CAMPA M.D. FLAQUITO CHAMPION M.D. FINAL REPORT The radiology attending physician has personally reviewed this study, and has reviewed and/or edited this written report and agrees with it. ACC# Date Time Exam [id number] Dec 21, 2015 09:28:00 [facility] [id number] Diag Mammogram Bilateral Technologist(s): Tamela Ly; ; [id number] Dec 21, 2015 09:28:00 [facility] [id number] Dig Breast Miguel Kenneth Technologist(s): Tamela Ly; ; EXAMINATION: BILATERAL FULL FIELD DIGITAL DIAGNOSTIC MAMMOGRAM WITH CAD AND BILATERAL DIGITAL BREAST TOMOSYNTHESIS HISTORY: Personal history of RIGHT breast cancer with prior breast conservation therapy. TECHNIQUE: Full field digital craniocaudal and mediolateral oblique views of both breasts were obtained. Computer Aided Detection was performed with Vimbly.3 version 9.3. Bilateral digital breast tomosynthesis was [...] CAMPA M.D. on Dec 21 2015 11:16A [id number] us Historical Provider IMG MAMMO PROCEDURES Mame l Result * Colonoscopy (02/12/2013) Anatomical Region Laterality Modality Other us Historical Provider ENDOSCOPY PROCEDURES Mame l Result from Last 3 Months or Most Recently Relevant to Health Maintenance Insurance [employer] Member Subscriber Plan / Payer ( fective 2021-Present) Name:Bonita Wade Relation to Subscriber:Spouse Name:SEEMA WADE Date of :1966 (Home) Address: [address] [place] [address] Payer ID:[id number] (NAIC) Type: OTHER Address: [place] [id number] Advance Directives For more information, please contact: [phone] * Full Code (Latest Code Status on File) Date Activated Date Inactivated Comments 06/21/2022 11:09 PM 06/27/2022 7:12 PM Care Teams Buccaro Relationship Specialty Start Date End Date Dev Pedersen DO PCP - General 08/30/18 Valentino Gil MD Radiation Oncologist Radiation Oncology 02/02/19 Joanne Bui, PhD Nurse Practitioner Radiation Oncology 02/02/19 Shravan Cantrell MD [address] [place] [phone] Medical Oncologist/Product Scientist Hematology 02/02/19
--- OUTSIDE RECORDS SUMMARY | 2024-12-10 10:33 | XMS_ITS | Encounter Summary ---
Author Organization [facility] Facility Care Team Providers Care Chair Frame Builder Name Role Phone Unknown, Notinfile Primary Care Provider Unavail able No, Physician Primary Care Provider [phone] Dev Pedersen DO Primary Care Provider + Valentino Gil MD Unavailable Lauren Villagomez MD Unavailable [phone] Joanne Bui PhD Unavailable [phone] Shravan Cantrell MD Unavailable Encounter Details Date Type Department Care Team (Latest Contact Info) Description 02/12/2013 Orders Only [facility]IN[facility] ProviderWagner MD [address] [place] [address] Social History Tobacco Use Types Packs/Day Years Used Date Smoking Tobacco: Never Assessed Comments Unknown Sex and Gender Information Value Date Recorded Sex Assigned at Not on file Legal Sex Female 4:36 PM MINERAL TECHNOLOGIST Gender Identity Female 12/08/2021 8:51 PM CDT Sexual Orientation Straight 12/08/2021 8: 51 PM CDT documented as of this encounter Plan of Treatment Not on file documented as of this encounter Procedures Procedure Name Priority Date/Time Associated Diagnosis Comments COLONOSCOPY - SCAN 02/12/2013 12 :00 AM CDT documented in this encounter Results * COLONOSCOPY - SCAN (02/12/2013 12:00 AM CDT) Narrative 02/12/2013 12:00 AM CDT Ordered by an unspecified provider. us Historical [...] COVID: Suspected 06/21/2022 06/21/2022 06/21/2022 3:18 PM MINERAL TECHNOLOGIST documented as of this encounter Care Teams Chair Frame Builder Relationship Specialty Start Date End Date Unknown, Notinfile PCP - General 01/08/17 07/03/18 No, Physician PCP - General 07/04/18 08/29/18 Dev Pedersen DO PCP - General 08/30/18 Valentino Gil MD Radiation Oncologist Radiation Oncology 02/02/19 Lauren Villagomez MD Medical Oncologist/Police Inspector Medical Oncology 02/02/19 10/17/22 Joanne Bui, PhD Nurse Practitioner Radiation Oncology 02/02/19 Shravan Cantrell MD [address] [address] Medical Oncologist/Police Inspector Hematology 02/02/19 documented as of this encounter
--- OUTSIDE RECORDS SUMMARY | 2024-12-10 10:33 | XMS_ITS | Encounter Summary ---
Author Organization [facility] Healthcare Address [address] [place] [address] Care Team Providers Care Route Sales Associate Name Role Phone Unavailable Primary Care Provider Unavailabl e Reason for Visit * Diagnostic Imaging (Routine) - Closed Specialty Diagnoses / Procedures Referred By Contac t Referred To Contact Procedures Breast Imaging Screening Outside Reference Diana Arias MD [address] [place] [address] Phone: tel: fax: Referral ID Status Reason Start Date Expiration Date Visits Re quested Visits Authorized [id number] Closed 04/08/2022 05/08/2023 1 1 Encounter Details Date Type Department Care Team (Late st Contact Info) Description 10/25/2016 Hospital Encounter [facility] [address] [place], [place] [id number] Social History Tobacco Use Types Packs/Day Years [...] on file Legal Sex Female 4:36 PM SEAT MENDER Gender Identity Female 12/08/2021 8:51 PM CDT [...] BREAST IMAGING MG SCREENING OUTSIDE REFERENCE Routine 10/25/2016 12:00 AM CDT documented in this encounter Results * Breast Imaging Screening Outside Reference (10/25/2016 12:00 AM CDT) Impressions RAD_MAMMO_[facility] - 04/08/2022 2:12 PM SEAT MENDER These images are for Reference purposes only and have not been reviewed by [facility] Radiology. There will be no report generated by a [facility] Radiologist. Narrative RAD_MAMMO_[facility] - 04/08/2022 2:12 PM SEAT MENDER EXAMINATION: Images For Reference Purposes Only us [...] COVID: Suspected 06/21/2022 06/21/2022 06/21/2022 3:18 PM SEAT MENDER documented as of this encounter
--- OUTSIDE RECORDS SUMMARY | 2024-12-10 10:33 | XMS_ITS | Encounter Summary ---
Author Organization [facility] Address [address] [place] [address] Phone Care Team Providers Care Load Checker Name Role Phone Unknown, Notinfile Primary Care Provider Unavail able No, Physician Primary Care Provider Dev Pedersen DO Primary Care Provider + Valentino Gil MD Unavailable Lauren Villagomez MD Unavailable [phone] Joanne Bui PhD Unavailable [phone] Shravan Cantrell MD Unavailable [phone] Encounter Details Date Type Department Care Team (Latest Contact Info) Description 05/02/2017 Orders Only [facility] Scanning, Provider Social History Tobacco Use Types Packs/Day Years Used Date Smoking Tobacco: Never Assessed Comments Unknown Sex and Gender Information Value Date Recorded Sex Assigned at Not on file Legal Sex Female 4:36 PM ER MEDICAL 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 Gender Identity Female 12/08/2021 8:51 PM CDT Sexual Orientation Straight 12/08/2021 8: 51 PM CDT documented as of this encounter Plan of Treatment Not on file documented as of this encounter Procedures Procedure Name Priority Date/Time Associated Diagnosis Comments SCAN - RADIOLOGY/IMAGING 05/02/2017 documented in this encounter Results * SCAN - RADIOLOGY/IMAGING (05/02/2017) Anatomical Region Laterality Modality Other us Provider [...] COVID: Suspected 06/21/2022 06/21/2022 06/21/2022 3:18 PM ER MEDICAL TECHNICIAN documented as of this encounter Care Teams Load Checker Relationship Specialty Start Date End Date Unknown, Notinfile PCP - General 01/08/17 07/03/18 No, Physician PCP - General 07/04/18 08/29/18 Dev Pedersen DO PCP - General 08/30/18 Valentino Gil MD Radiation Oncologist Radiation Oncology 02/02/19 Lauren Villagomez MD Medical Oncologist/President Ceo & Founder Medical Oncology 02/02/19 10/17/22 Joanne Bui, PhD Nurse Practitioner Radiation Oncology 02/02/19 Shravan Cantrell MD [address] [address] Medical Oncologist/President Ceo & Founder Hematology 02/02/19 documented as of this encounter
--- OUTSIDE RECORDS SUMMARY | 2024-12-10 10:33 | XMS_ITS | Encounter Summary ---
Author Organization [facility] Facility Care Team Providers Care Singe Machine Operator Name Role Phone Unknown, Notinfile Primary Care Provider Unavail able No, Physician Primary Care Provider [phone] Dev Pedersen DO Primary Care Provider + Valentino Gil MD Unavailable Lauren Villagomez MD Unavailable [phone] Joanne Bui PhD Unavailable [phone] Shravan Cantrell MD Unavailable [phone] Encounter Details Date Type Department Care Team (Latest Contact Info) Description 06/13/2018 Orders Only [facility]IN[facility] ProviderWagner MD [address] [place] [address] Social History Tobacco Use Types Packs/Day Years Used Date Smoking Tobacco: Never Assessed Comments Unknown Sex and Gender Information Value Date Recorded Sex Assigned at Not on file Legal Sex Female 4:36 PM HAIRSPRING FABRICATION SUPERVISOR Gender Identity Female 12/08/2021 8:51 PM CDT Sexual Orientation Straight 12/08/2021 8: 51 PM CDT documented as of this encounter Plan of Treatment Not on file documented as of this encounter Procedures Procedure Name Priority Date/Time Associated Diagnosis Comments SCAN - LABS 06/17/2018 12:00 AM HAIRSPRING FABRICATION SUPERVISOR SCAN - LABS 06/17/2018 12:00 AM HAIRSPRING FABRICATION SUPERVISOR SCAN - LABS 06/17/2018 12:00 AM HAIRSPRING FABRICATION SUPERVISOR SCAN - LABS 06/17/2018 12:00 AM HAIRSPRING FABRICATION SUPERVISOR SCAN - LABS 06/16/2018 12:00 AM HAIRSPRING FABRICATION SUPERVISOR SCAN - LABS 06/15/2018 12:00 AM HAIRSPRING FABRICATION SUPERVISOR documented in this encounter Results * SCAN - LABS (06/17/2018 12:00 AM HAIRSPRING FABRICATION SUPERVISOR) Narrative 06/17/2018 12:00 AM HAIRSPRING FABRICATION SUPERVISOR Ordered by an unspecified provider. [facility] Provider MD Final Res ult * SCAN - LABS (06/17/2018 12:00 AM HAIRSPRING FABRICATION SUPERVISOR) Narrative 06/17/2018 12:00 AM HAIRSPRING FABRICATION SUPERVISOR Ordered by an unspecified provider. [facility] Provider Final Res ult * SCAN - LABS (06/17/2018 12:00 AM HAIRSPRING FABRICATION SUPERVISOR) Narrative 06/17/2018 12:00 AM HAIRSPRING FABRICATION SUPERVISOR Ordered by an unspecified provider. [facility] Provider Final Res ult * SCAN - LABS (06/17/2018 12:00 AM HAIRSPRING FABRICATION SUPERVISOR) Narrative 06/17/2018 12:00 AM HAIRSPRING FABRICATION SUPERVISOR Ordered by an unspecified provider. [facility] Provider Final Res ult * SCAN - LABS (06/16/2018 12:00 AM HAIRSPRING FABRICATION SUPERVISOR) Narrative 06/16/2018 12:00 AM HAIRSPRING FABRICATION SUPERVISOR Ordered by an unspecified provider. [facility] Provider Final Res ult * SCAN - LABS (06/15/2018 12:00 AM HAIRSPRING FABRICATION SUPERVISOR) Narrative 06/15/2018 12:00 AM HAIRSPRING FABRICATION SUPERVISOR Ordered by an unspecified provider. [facility] Provider Final Res ult documented in this encounter Visit Diagnoses Not on filedocumented in this encounter Additional Health Concerns Infection Onset Date Last Indicated Resolved Time C. difficile Comment:06/10/2022 IP Review: per current RN, no diarrhea. OK to be taken off C.dif precautions. Mae Tarun, [place] 201706/03/2019 06/02/2019 06/10/2022 7:[address] COVID: Suspected 06/21/2022 06/21/2022 06/21/2022 3:18 PM HAIRSPRING FABRICATION SUPERVISOR documented as of this encounter Care Teams Singe Machine Operator Relationship Specialty Start Date End Date Unknown, Notinfile PCP - General 01/08/17 07/03/18 No, Physician PCP - General 07/04/18 08/29/18 Dev Pedersen DO PCP - General 08/30/18 Valentino Gil MD Radiation Oncologist Radiation Oncology 02/02/19 Lauren Villagomez MD Medical Oncologist/Unit Trust Manager Medical Oncology 02/02/19 10/17/22 Joanne Bui, PhD Nurse Practitioner Radiation Oncology 02/02/19 Shravan Cantrell MD [address] [address] Medical Oncologist/Unit Trust Manager Hematology 02/02/19 documented as of this encounter
--- OUTSIDE RECORDS SUMMARY | 2024-12-10 10:33 | XMS_ITS | Encounter Summary ---
Author Organization [facility] Address [address] [place] [address] Phone Care Team Providers Care Security Solutions Architect Name Role Phone Dev Pedersen DO Primary Care Provider + Valentino Gil MD Unavailable Lauren Villagomez MD Unavailable [phone] Joanne Bui PhD Unavailable [phone] Shravan Cantrell MD Unavailable [phone] Encounter Details Date Type Department Care Team (Latest Contact Info) Description 01/15/2022 Orders Only [facility] Scanning, Provider [...] on file Legal Sex 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 Gender Identity Female 12/08/2021 8:51 PM CDT Sexual Orientation Straight 12/08/2021 8: 51 PM CDT documented as of this encounter Plan of Treatment Not on file documented as of this encounter Procedures Procedure Name Priority Date/Time Associated Diagnosis Comments SCAN - RADIOLOGY/IMAGING 01/15/2022 documented in this encounter Results * SCAN - RADIOLOGY/IMAGING (01/15/2022) Anatomical Region Laterality Modality Other us Provider [...] COVID: Suspected 06/21/2022 06/21/2022 06/21/2022 3:18 PM VARNISH MAKER HELPER documented as of this encounter Care Teams Security Solutions Architect Relationship Specialty Start Date End Date Dev Pedersen DO PCP - General 08/30/18 Valentino Gil MD Radiation Oncologist Radiation Oncology 02/02/19 Lauren Villagomez MD Medical Oncologist/Stove Mechanic Medical Oncology 02/02/19 10/17/22 Joanne Bui, PhD Nurse Practitioner Radiation Oncology 02/02/19 Shravan Cantrell MD [address] [place] [id number] Medical Oncologist/Stove Mechanic Hematology 02/02/19 documented as of this encounter
--- OUTSIDE RECORDS SUMMARY | 2024-12-10 10:33 | XMS_ITS | Encounter Summary ---
Author Organization [facility] Address [address] [place] [address] Phone Care Team Providers Care Special Services Coordinator Name Role Phone Dev Pedersen DO Primary Care Provider + Valentino Gil MD Unavailable Lauren Villagomez MD Unavailable [phone] Joanne Bui PhD Unavailable [phone] Shravan Cantrell MD Unavailable [phone] Encounter Details Date Type Department Care Team (Latest Contact Info) Description 07/27/2019 Orders Only [facility] Scanning, Provider Social History Tobacco Use Types Packs/Day Years Used Date Smoking Tobacco: Never Smokeless Tobacco: Never Alcohol Use Standard Drinks/Week Comments Yes 1 (1 standard drink = 0.6 oz pur e alcohol) Comments Unknown Sex and Gender Information Value Date Recorded Sex Assigned at Not on file Legal Sex Female 4:36 PM BOILER WASHER Gender Identity Female 12/08/2021 8:51 PM CDT Sexual Orientation Straight 12/08/2021 8: 51 PM CDT documented as of this encounter Plan of Treatment Not on file documented as of this encounter Procedures Procedure Name Priority Date/Time Associated Diagnosis Comments SCAN - RADIOLOGY/IMAGING 07/27/2019 documented in this encounter Results * SCAN - RADIOLOGY/IMAGING (07/27/2019) Anatomical Region Laterality Modality Other us Provider [...] COVID: Suspected 06/21/2022 06/21/2022 06/21/2022 3:18 PM BOILER WASHER documented as of this encounter Care Teams Special Services Coordinator Relationship Specialty Start Date End Date Dev Pedersen DO PCP - General 08/30/18 Valentino Gil MD Radiation Oncologist Radiation Oncology 02/02/19 Lauren Villagomez MD Medical Oncologist/Aemt Medical Oncology 02/02/19 10/17/22 Joanne Bui, PhD Nurse Practitioner Radiation Oncology 02/02/19 Shravan Cantrell MD [address] [address] Medical Oncologist/Aemt Hematology 02/02/19 documented as of this encounter
--- OUTSIDE RECORDS SUMMARY | 2024-12-10 10:33 | XMS_ITS | Encounter Summary ---
Author Organization [facility] Address [address] [place] [address] Phone Care Team Providers Care Virtual Office Assistant Name Role Phone Dev Pedersen DO Primary Care Provider + Valentino Gil MD Unavailable Lauren Villagomez MD Unavailable [phone] Joanne Bui PhD Unavailable [phone] Shravan Cantrell MD Unavailable [phone] Encounter Details Date Type Department Care Team (Latest Contact Info) Description 11/08/2019 Orders Only [facility] Scanning, Provider Social History Tobacco Use Types Packs/Day Years Used Date Smoking Tobacco: Never Smokeless Tobacco: Never Alcohol Use Standard Drinks/Week Comments Yes 1 (1 standard drink = 0.6 oz pur e alcohol) Comments Unknown Sex and Gender Information Value Date Recorded Sex Assigned at Not on file Legal Sex Female 4:36 PM END TRIMMER Gender Identity Female 12/08/2021 8:51 PM CDT Sexual Orientation Straight 12/08/2021 8: 51 PM CDT documented as of this encounter Plan of Treatment Not on file documented as of this encounter Procedures Procedure Name Priority Date/Time Associated Diagnosis Comments SCAN - RADIOLOGY/IMAGING 11/08/2019 documented in this encounter Results * SCAN - RADIOLOGY/IMAGING (11/08/2019) Anatomical Region Laterality Modality Other us Provider [...] COVID: Suspected 06/21/2022 06/21/2022 06/21/2022 3:18 PM END TRIMMER documented as of this encounter Care Teams Virtual Office Assistant Relationship Specialty Start Date End Date Dev Pedersen DO PCP - General 08/30/18 Valentino Gil MD Radiation Oncologist Radiation Oncology 02/02/19 Lauren Villagomez MD Medical Oncologist/Help Desk Supervisor Medical Oncology 02/02/19 10/17/22 Joanne Bui, PhD Nurse Practitioner Radiation Oncology 02/02/19 Shravan Cantrell MD [address] [address] Medical Oncologist/Help Desk Supervisor Hematology 02/02/19 documented as of this encounter
--- OUTSIDE RECORDS SUMMARY | 2024-12-10 10:33 | XMS_ITS | Encounter Summary ---
Author Organization [facility] Address [address] [place] [address] Phone Care Team Providers Care Wrapping Clerk Name Role Phone Dev Pedersen DO Primary Care Provider + Valentino Gil MD Unavailable Lauren Villagomez MD Unavailable [phone] Joanne Bui PhD Unavailable [phone] Shravan Cantrell MD Unavailable [phone] Encounter Details Date Type Department Care Team (Latest Contact Info) Description 11/07/2018 Orders Only [facility] Scanning, Provider Social History Tobacco Use Types Packs/Day Years Used Date Smoking Tobacco: Never Assessed Comments Unknown Sex and Gender Information Value Date Recorded Sex Assigned at Not on file Legal Sex Female 4:36 PM 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 Gender Identity Female 12/08/2021 8:51 PM CDT Sexual Orientation Straight 12/08/2021 8: 51 PM CDT documented as of this encounter Plan of Treatment Not on file documented as of this encounter Procedures Procedure Name Priority Date/Time Associated Diagnosis Comments SCAN - RADIOLOGY/IMAGING 11/07/2018 documented in this encounter Results * SCAN - RADIOLOGY/IMAGING (11/07/2018) Anatomical Region Laterality Modality Other us Provider [...] COVID: Suspected 06/21/2022 06/21/2022 06/21/2022 3:18 PM 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 documented as of this encounter Care Teams Wrapping Clerk Relationship Specialty Start Date End Date Dev Pedersen DO PCP - General 08/30/18 Valentino Gil MD Radiation Oncologist Radiation Oncology 02/02/19 Lauren Villagomez MD Medical Oncologist/Video Manager Medical Oncology 02/02/19 10/17/22 Joanne Bui, PhD Nurse Practitioner Radiation Oncology 02/02/19 Shravan Cantrell MD [address] [id number] Medical Oncologist/Video Manager Hematology 02/02/19 documented as of this encounter
== END 2024-12-10 10:27 | disposition home or self-care (01) ==
LOC: ANHIMG 10:30
PROVIDERS: PCP Family Medicine; Visit Provider Obstetrics & Gynecology Gynecology
DX: Z78.0 Asymptomatic menopausal state (principal); M85.852 Other specified disorders of bone density and structure, left thigh; M85.851 Other specified disorders of bone density and structure, right thigh
CPT/HCPCS: 77080